=== PATIENT | male | born 1995 | race African-American/Black ===

== ENCOUNTER 2016-03-22 00:25 | Inpatient (IN) | payer BC ==
[~2016-03-22] VITALS: Ht 175.3 cm; Wt 88.3 kg
[2016-03-22] MEDS ORDERED: HALOPERIDOL LACTATE 5 MG/ML 1 ML VIAL IM STA (00:41)
[2016-03-22 00:52] LABS: BASO % 0.1 %; BASO ABS # 0.01 K/uL (0-0.2); COMPLETE YES; HEMATOCRIT 39.7 % (42-52); IG% 0.3 %; LYMPH % 6.9 %; LYMPH ABS # 1.06 K/uL (1.2-3.4); MEAN CELL VOLUME 88.6 fL (80-100); MEAN CORPUSCULAR HEMOGLOBIN 31.9 pg (25-34); MEAN PLATELET VOLUME 9.4 fL (7.4-10.4); MONO % 4.8 %; NEUT % 87.9 %; PLATELET COUNT 212 K/uL (130-400); RED BLOOD COUNT 4.48 M/uL (4.7-6.1); WHITE BLOOD COUNT 15.33 K/uL (4.8-10.8)
[2016-03-22 01:06] LABS: POTASSIUM 4.1 mmol/L (3.5-5.1)
--- NOTE | 2016-03-22 01:07 | EMERGENCY ROOM VISIT NOTE ---
History Report prepared by Jaylyn: Shalini Whiteside Under the Supervision of: Dr. Real Almaguer M.D. First contact with patient: 00:31 Chief Complaint: MENTAL HEALTH EVALUATION Stated Complaint: MENTAL HEALTH History of Present Illness The patient is a 20 year old male who presents to the Emergency Room via Police with complaints of persistent suicidal ideation occurring today. As per police, the patient had threatened to slit his throat. He then locked himself in the bathroom for about 2 and a half hours. As per police, the parents told the police that the patient does not have a history of any mental health disorders. He does not have any medical problems. He does not follow with a counselor. The patient states that earlier today he told some of his friends that he was thinking about committing suicide. He denies any major incidents that triggered his symptoms. He drank some alcohol earlier in the day. He also reports smoking marijuana. He is unsure if it was laced with something else or not. The patient denies injuring himself today. He denies overdosing on any medication. He currently denies any pain. The patient states that he currently feels "out of place." The patient denies any chest pain, abdominal pain, or any other complaints. As per friends, the patient had been altered all day today. HPI is limited secondary to altered mental status. Source of History: patient, police, friend History Limited By: AMS Onset: today Position: other (global) Symptom Intensity: No pain Quality: other (suicidal ideation) Timing: other (persistent) Associated Symptoms: No abdominal pain, No chest pain Review of Systems ROS is limited secondary to altered mental status. Past Medical & Surgical Medical Problems: (1) No Known Active Medical Problems Family History Patient reports no known family medical history. Social History Alcohol Use: occasionally Drug Use: marijuana Marital Status: single Housing Status: lives alone Occupation Status: [employer] student Current/Historical Medications No Active Prescriptions or Reported Meds Allergies Coded Allergies: No Known Allergies (Unverified , 03/22/16) Physical Exam Vital Signs Date Time Temp Pulse Resp B/P Pulse Ox O2 Delivery O2 Flow Rate FiO2 03/22/16 04:45 81 16 144/77 100 Room Air 03/22/16 02:45 87 18 129/87 99 Room Air 03/22/16 00:48 37.2 105 16 136/79 98 Room Air Physical Exam GENERAL: Patient is altered, mildly agitated, easily excitable. HEENT: No acute trauma, normocephalic atraumatic, mucous membranes moist, no nasal congestion, no scleral icterus. NECK: No stridor, no adenopathy, no meningismus, trachea is midline. LUNGS: No dyspnea. Clear to auscultation and equal bilaterally. No wheeze, no rhonchi. HEART: Regular rate and rhythm. No murmurs, rubs, gallops appreciated. ABDOMEN: Soft, nontender, bowel sounds positive, no masses appreciated, no peritonitis. BACK: No midline tenderness, no CVA tenderness EXTREMITIES: Normal motion all extremities, no cyanosis, no edema. NEUROLOGIC: Alert and oriented, no acute motor or sensory deficits, no focal weakness, cranial nerves grossly intact. PSYCHIATRIC: Admits suicidal ideation, denies depression, admits drug and alcohol use. SKIN: No rash, no jaundice, no diaphoresis. Medical Decision & Procedures Laboratory Results 03/22/16 00:38 Red Blood Count 4.48, Mean Corpuscular Volume 88.6, Mean Corpuscular Hemoglobin 31.9, Mean Corpuscular Hemoglobin Concent 36.0, Mean Platelet Volume 9.4, Neutrophils (%) (Auto) 87.9, Lymphocytes (%) (Auto) 6.9, Monocytes (%) (Auto) 4.8, Eosinophils (%) (Auto) 0.0, Basophils (%) (Auto) 0.1, Neutrophils # (Auto) 13.48, Lymphocytes # (Auto) 1.06, Monocytes # (Auto) 0.74, Eosinophils # (Auto) 0.00, Basophils # (Auto) 0.01 03/22/16 00:38 Test 03/22/16 00:38 03/22/16 01:46 White Blood Count 15.33 K/uL (4.8-10.8) Red Blood Count 4.48 M/uL (4.7-6.1) Hemoglobin 14.3 g/dL (14.0-18.0) Hematocrit 39.7 % (42-52) Mean Corpuscular Volume 88.6 fL (80-100) Mean Corpuscular Hemoglobin 31.9 pg (25-34) Mean Corpuscular Hemoglobin Concent 36.0 g/dl (32-36) Platelet Count 212 K/uL (130-400) Mean Platelet Volume 9.4 fL (7.4-10.4) Neutrophils (%) (Auto) 87.9 % Lymphocytes (%) (Auto) 6.9 % Monocytes (%) (Auto) 4.8 % Eosinophils (%) (Auto) 0.0 % Basophils (%) (Auto) 0.1 % Neutrophils # (Auto) 13.48 K/uL (1.4-6.5) Lymphocytes # (Auto) 1.06 K/uL (1.2-3.4) Monocytes # (Auto) 0.74 K/uL (0.11-0.59) Eosinophils # (Auto) 0.00 K/uL (0-0.5) Basophils # (Auto) 0.01 K/uL (0-0.2) RDW Standard Deviation 38.8 fL (36.4-46.3) RDW Coefficient of Variation 12.0 % (11.5-14.5) Immature Granulocyte % (Auto) 0.3 % Immature Granulocyte # (Auto) 0.04 K/uL (0.00-0.02) Anion Gap 12.0 mmol/L (3-11) Est Creatinine Clear Calc Drug Dose 99.5 ml/min Estimated GFR () 91.0 Estimated GFR (Non- 78.5 BUN/Creatinine Ratio 14.3 (10-20) Calcium Level 9.5 mg/dl (8.5-10.1) Total Bilirubin 0.6 mg/dl (0.2-1) Aspartate Amino Transf (AST/SGOT) 31 U/L (15-37) Alanine Aminotransferase (ALT/SGPT) 71 U/L (12-78) Alkaline Phosphatase 62 U/L (45-117) Total Creatine Kinase 949 U/L (39-308) Total Protein 8.4 gm/dl (6.4-8.2) Albumin 4.7 gm/dl (3.4-5.0) Globulin 3.7 gm/dl (2.5-4.0) Albumin/Globulin Ratio 1.3 (0.9-2) Thyroid Stimulating Hormone (TSH) 1.050 uIu/ml (0.300-4.500) Salicylates Level < 1.7 mg/dl (2.8-20) Acetaminophen Level < 2 ug/ml (10-30) Ethyl Alcohol mg/dL < 3.0 mg/dl (0-3) Urine Color YELLOW Urine Appearance CLEAR (CLEAR) Urine pH 5.0 (4.5-7.5) Urine Specific [place] 1.038 (1.000-1.030) Urine Protein NEG (NEG) Urine Glucose (UA) 3+ (NEG) Urine Ketones TRACE (NEG) Urine Occult Blood NEG (NEG) Urine Nitrite NEG (NEG) Urine Bilirubin NEG (NEG) Urine Urobilinogen NEG (NEG) Urine Leukocyte Esterase SMALL (NEG) Urine WBC (Auto) >30 /hpf (0-5) Urine RBC (Auto) 5-10 /hpf (0-4) Urine Hyaline Casts (Auto) 10-30 /lpf (0-5) Urine Epithelial Cells (Auto) 10-20 /lpf (0-5) Urine Bacteria (Auto) NEG (NEG) Urine Opiates Screen NEG (NEG) Urine Methadone, Qualitative NEG (NEG) Urine Barbiturates NEG (NEG) Urine Phencyclidine (PCP) Level NEG (NEG) Ur Amphetamine/Methamphetamine NEG (NEG) MDMA (Ecstasy) Screen NEG (NEG) Urine Benzodiazepines Screen NEG (NEG) Urine Cocaine Metabolite NEG (NEG) Urine Marijuana (THC) POS (NEG) Laboratory results as reviewed by me. Medications Administered Medications (Trade) Dose Ordered Sig/Lisy Route Start Time Stop Time Status Last Admin Dose Admin Sodium Chloride (Nss 1000ml) 1,000 ml @ 999 mls/hr Q1H1M STAT IV 03/22/16 01:25 03/22/16 02:25 DC 03/22/16 01:25 999 MLS/HR ECG Indication: altered mental status Rate (beats per minute): 110 Rhythm: sinus tachycardia Findings: no acute ischemic change, no ectopy, other (QTC of 422) ED Course 0031: The patient was evaluated in room A05. A complete history and physical exam was performed. 0116: I reevaluated the patient who is calm. He did not receive the Haldol. 0125: Sodium Chloride 1000 ml @ 999 mls/hr IV. He is agreeable to an IV. 0237: The patient is sleeping. I discussed the plan with his friends. 0300: I discussed the patient's case with his parents. The patient is sleeping soundly and in no distress. 0524: He woke up and went to the bathroom. The patient is now sleeping again. 0730: The patient was signed out to Dr. Serrato at [id number]. Medical Decision Differential: Mood Disorder, Overdose, Infectious, Electrolyte Abnormality, Cardiac, Hepatic, Endocrine, Toxicologic, Neurologic, amongst other pathologies entertained. 20 yr old male arrives altered and agitated. He is apparently much calmer now than when he had essentially been in standoff with police threatening to cut throat for over an hour. EMS gave 4 mg Ativan en route. With friends at side he eventually calmed considerably to point where he feel asleep and in no further distress. Never required haldol that had been initially ordered. EKG looks good. Mild CK elevation likely from agitation which is also likely source of WBC elevation as no fevers, no headache, no neck stiffness nor other evidence of infection. Given 1 L NSS fluids for rehydration. Patient still quite somnolent as would be expected after large dosing of ativan. He was monitored and parents eventually arrived. Explained at length to them process, and in this case the plan to monitor Pro for next few hours and in to the morning until he is awake and fully interactive. I suspect this may have much to do with the Marijuana he smoked prior to this event taking place, be it that it set off acute psychotic break vs it was laced with some secondary drug (PCP, bath salts, etc). 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 Around 7am I re-evaluated patient and he is awake, alert and oriented. He is aware of what happened and admits to suicidal thoughts over the last 24 hours. He is no longer acutely psychotic and I feel is capable of mental health evaluation. I made it clear to patient my thoughts that inpatient stay would be beneficial and that [facility] will further discuss this with him. Impression Primary Impression: Acute psychosis Additional Impression: Suicidal behavior Scribe Attestation The scribe's documentation has been prepared under my direction and personally reviewed by me in its entirety. I confirm that the note above accurately reflects all work, treatment, procedures, and medical decision making performed by me. Departure Information Dispostion Still a Patient Prescriptions No Active Prescriptions or Reported Meds Patient Instructions A Signature Page, My [facility] Health Problem Qualifiers Additional Impression: Suicidal behavior Attempted self-injury: with attempted self-injury Qualified Codes: T14.91 - Suicide attempt
[2016-03-22 01:11] LABS: BUN/CREATININE RATIO 14.3 (10-20); CALCIUM 9.5 mg/dl (8.5-10.1); CREATININE 1.3 mg/dl (0.60-1.40)
[2016-03-22 01:22] LABS: ALB/GLOB RATIO 1.3 (0.9-2); THYROID STIMULATING HORMONE 1.05 uIu/ml (0.300-4.500)
[2016-03-22 01:25] LABS: ACETAMINOPHEN < 2 ug/ml (10-30)
[2016-03-22] MEDS ORDERED: SODIUM CHLORIDE 0.9% 1000ML 1,000 ML IV STA ×2 (01:25→20:36)
[2016-03-22 01:58] LABS: URINE APPEARANCE CLEAR (CLEAR); URINE BILIRUBIN NEG (NEG); URINE COLOR YELLOW; URINE NITRITE NEG (NEG); URINE SPECIFIC GRAVITY 1.038 (1.000-1.030); UROBILINOGEN NEG (NEG); ZZUR CULT IF INDIC CLEAN CATCH YES
[2016-03-22 02:00] LABS: MANUAL MICROSCOPIC REQUIRED? NO; REVIEW REQ? NO
[2016-03-22 02:29] LABS: BENZODIAZEPINE, URINE NEG (NEG); COCAINE,URINE NEG (NEG); PHENCYCLIDINE, URINE NEG (NEG)
--- NOTE | 2016-03-22 07:44 | EMERGENCY ROOM VISIT NOTE ---
ED Visit Note First contact with patient: 07:17 20-year-old male was signed off to me at change of shift from Dr. Almaguer. Patient is awaiting mental health evaluation. I briefly discussed care with the patient and with multiple family members. 1510 lymphs patient was accepted for transfer to [place] but they wanted another CK first. That second CK was significantly elevated. The patient will be further hydrated and another CK will be drawn at 20:00. Hopefully his CK will then be down and the patient can proceed to [place]. The case was signed off to Dr. Patel at 1610 for reevaluation this evening. IMPRESSION: Depression Suicidal Ideation Rhabdomyolysis Acute psychosis
[2016-03-22 14:54] LABS: CKMB/CK RATIO 0.3 (0-3.0)
[2016-03-22] MEDS ORDERED: SODIUM CHLORIDE 0.9% 1000ML 2,000 ML IV ONE (15:15)
--- NOTE | 2016-03-22 16:12 | EMERGENCY ROOM VISIT NOTE ---
ED Visit Note First contact with patient: 16:10 Patient was taken in signout from Dr. Serrato at the change of shift. He was pending a repeat total CK. The patient had received hydration, 2 L and was orally hydrated. His repeat CK revealed an increasing value. The patient was reassessed and was feeling well. No major muscle pains. Due to the fact that his total CK was going out he was given normal saline at 250 mL an hour IV. An consultation was made with internal medicine for further management in the hospital. I did discuss case with Dr. Agapito Sosa who will see the patient for further treatment.
[2016-03-22 22:06] LABS: BUN/CREATININE RATIO 11.1 (10-20); CALCIUM 9.5 mg/dl (8.5-10.1); CREATININE 0.93 mg/dl (0.60-1.40); POTASSIUM 3.9 mmol/L (3.5-5.1)
[2016-03-22] MEDS ORDERED: ZOLPIDEM TARTRATE 5 MG TAB PO PRN (23:00)
[2016-03-22] MEDS ORDERED: ACETAMINOPHEN 325 MG TAB PO PRN (23:00)
[2016-03-22] MEDS ORDERED: ONDANSETRON INJ 2 MG/ML 2 ML VIAL IV PRN (23:00)
[2016-03-22] MEDS ORDERED: IV FLUIDS COMPLETED PRN (23:15)
[2016-03-23] MEDS: NSS + 20MEQ KCL 1000ML 1,000 ML IV SCH ×6 (00:42→20:10)
[2016-03-23 00:44] VITALS: BP 143/89; PULSE 73; TEMP 36.7; O2SAT 99; Ht 175.3 cm; Wt 88.3 kg
--- NOTE | 2016-03-23 01:57 | History and Physical ---
History & Physical Date & Time of Service: Mar 23, 2016 at 01:41 Chief Complaint: Elevated Creatine Kinase Level, Suicidal Behavior Primary Care Physician: [facility] History of Present Illness Source: patient, parent The patient is a 20-year-old male who presents emergency department via police due to persistent suicidal ideation that occurred earlier in the day prior to arrival. The police report that he had threatened the slit his throat and then locked himself in the bathroom for about 2-1/2 hours. The parents report that the patient does not have any known medical problems, mental health disorders and does not follow with a counselor. The patient reports that he did tell some friends earlier today he was thinking about quitting suicide, but denies any trigger for these symptoms. He did drink some alcohol and smokes some marijuana earlier in the day. At this time the patient primarily reports that he feels "out of place", but he has not attempted to hurt himself. Family History Patient reports no known family medical history. Social History Smoking Status: Never Smoker Smokeless Tobacco Use: No Alcohol Use: none Drug Use: marijuana Marital Status: single Occupational Status: [employer] student Multi-Drug Resistant Organisms History of MDRO: No Allergies Coded Allergies: No Known Allergies (Unverified , 03/22/16) Home Medications No Active Prescriptions or Reported Meds Review of Systems The patient denies chest pain, palpitations, shortness of breath, cough, lower extremity swelling, vision change, hearing change, sore throat, fevers, chills, sweats, weight change, fatigue, nausea, vomiting, abdominal pain, pelvic pain, blood in urine or stool, dysuria, urinary frequency or urgency, lightheadedness , dizziness, headache, memory loss, rash, abnormal bruising or bleeding, imbalance, focal or generalized weakness, numbness or tingling in arms or legs, arthralgias or myalgias, back or neck pain, night sweats, or allergy symptoms. The review of systems is otherwise negative other than for that already noted above, and at least 10 systems have been reviewed. Physical Exam Vital Signs Date Time Temp Pulse Resp B/P Pulse Ox O2 Delivery O2 Flow Rate FiO2 03/23/16 00:44 36.7 73 18 143/89 99 Room Air 03/23/16 00:01 37.2 81 18 153/104 97 03/22/16 23:47 81 18 153/104 97 Room Air 03/22/16 21:21 87 18 145/103 98 Room Air 03/22/16 18:30 68 16 160/89 98 Room Air 03/22/16 15:00 87 20 160/89 98 Room Air 03/22/16 12:02 84 20 154/84 98 Room Air 03/22/16 09:03 74 16 154/71 99 Room Air 03/22/16 04:45 81 16 144/77 100 Room Air 03/22/16 02:45 87 18 129/87 99 Room Air The patient is awake, well-developed and adequately nourished, alert and oriented 3, normocephalic and atraumatic, lying in bed and in no acute distress. HEENT--PERRL, EOMI, mucous membranes moist, and oropharynx normal. Neck--supple, no JVD or bruits, thyroid normal, trachea midline, no adenopathy. Heart--normal S1 and S2, no extra beats, no murmurs, rubs or gallops. Lungs--clear bilaterally with good air movement, no respiratory distress, no accessory muscle use. Abdomen--normal bowel sounds and soft, nontender and nondistended, no hernias or masses, no organomegaly. Extremities--no cyanosis, clubbing or edema. There are good distal pulses b/l. Dermatologic--normal skin turgor, normal color, warm and dry, no abnormal lymph nodes, no rash. Neurologic--cranial nerves II through XII grossly intact, motor and sensory exam is normal. Rheumatologic--normal range of motion, nontender, muscles and joints. Psychiatric--normal affect. Diagnostics Laboratory Results Results Past 24 Hours Test 03/22/16 01:46 03/22/16 14:00 03/22/16 19:45 03/22/16 21:17 Range/Units Urine Color YELLOW Urine Appearance CLEAR CLEAR Urine pH 5.0 4.5-7.5 Urine Specific [place] 1.038 1.000-1.030 Urine Protein NEG NEG Urine Glucose (UA) 3+ NEG Urine Ketones TRACE NEG Urine Occult Blood NEG NEG Urine Nitrite NEG NEG Urine Bilirubin NEG NEG Urine Urobilinogen NEG NEG Urine Leukocyte Esterase SMALL NEG Urine WBC (Auto) >30 0-5 /hpf Urine RBC (Auto) 5-10 0-4 /hpf Urine Hyaline Casts (Auto) 10-30 0-5 /lpf Urine Epithelial Cells (Auto) 10-20 0-5 /lpf Urine Bacteria (Auto) NEG NEG Urine Opiates Screen NEG NEG Urine Methadone, Qualitative NEG NEG Urine Barbiturates NEG NEG Urine Phencyclidine (PCP) Level NEG NEG Ur Amphetamine/Methamphetamine NEG NEG MDMA (Ecstasy) Screen NEG NEG Urine Benzodiazepines Screen NEG NEG Urine Cocaine Metabolite NEG NEG Urine Marijuana (THC) POS NEG Total Creatine Kinase 4069 5067 4995 39-308 U/L Creatine Kinase MB 10.4 0.5-3.6 ng/ml Creatine Kinase MB Ratio 0.3 0-3.0 Erythrocyte Sedimentation Rate 4 0-14 mm/hr Sodium Level 140 136-145 mmol/L Potassium Level 3.9 3.5-5.1 mmol/L Chloride Level 104 98-107 mmol/L Carbon Dioxide Level 25 21-32 mmol/L Anion Gap 11.0 3-11 mmol/L Blood Urea Nitrogen 10 7-18 mg/dl Creatinine 0.93 0.60-1.40 mg/dl Est Creatinine Clear Calc Drug Dose 139.1 ml/min Estimated GFR () 136.5 Estimated GFR (Non- 117.8 BUN/Creatinine Ratio 11.1 10-20 Random Glucose 100 70-99 mg/dl Calcium Level 9.5 8.5-10.1 mg/dl Microbiology Results 03/22/16 Urine Culture, Received Pending Impression Assessment and Plan Suicidal ideation--the patient will be admitted to the medical service to assess for any possible medical problems, and will be seen by psychiatry in consult. The patient had been approved / excepted to go to [facility], however, he had elevated creatine kinase during screening laboratories, and when repeat labs were done at [facility] request, the CK had increased from 900' s to 4000's, and they no longer agreed to accept the patient. He was then referred to the medical service for admission. Elevated creatine kinase--unknown cause at this time, but may have just been due to relative immobility during the day as he was in the emergency department for over 21 hours before medical consult was made. His creatinine on follow-up laboratories hadn't improved from 1.30 to 0.93, suggesting that there was no element of renal disease. His CK levels went from 949 to 4069 to 5067 to 4995. We'll follow serial CK levels, and BMP levels, and when medically stable will be transferred to the psychiatry service. The patient himself continues to have no medical symptoms at this time or earlier in the day. Level of Care Med/Surg Advanced Directives Existing Advance Directive: No Existing Living Will: No Existing Power of Binding Machine Operator: No Resuscitation Status FULL RESUSCITATION VTE Prophylaxis VTE Risk Assessment Done? Y/N: Yes Risk Level: Low Given or contraindicated: Treatment not indicated
[2016-03-23 06:17] LABS: BASO % 0.1 %; BASO ABS # 0.01 K/uL (0-0.2); COMPLETE YES; HEMATOCRIT 40.3 % (42-52); IG% 0.1 %; LYMPH % 40.3 %; LYMPH ABS # 2.72 K/uL (1.2-3.4); MEAN CELL VOLUME 90.2 fL (80-100); MEAN CORPUSCULAR HEMOGLOBIN 31.3 pg (25-34); MEAN CORPUSCULAR HGB CONC 34.7 g/dl (32-36); MEAN PLATELET VOLUME 9.3 fL (7.4-10.4); MONO % 10.8 %; NEUT % 47.7 %; PLATELET COUNT 175 K/uL (130-400); RED BLOOD COUNT 4.47 M/uL (4.7-6.1); WHITE BLOOD COUNT 6.75 K/uL (4.8-10.8)
[2016-03-23 06:31] LABS: INR 1.2 (0.9-1.1); PARTIAL THROMBOPLASTIN RATIO 1.1; PROTHROMBIN TIME (PATIENT) 12.8 SECONDS (9.0-12.0)
[2016-03-23 06:44] LABS: BUN/CREATININE RATIO 10.6 (10-20); CREATININE 0.8 mg/dl (0.60-1.40); MAGNESIUM 2.1 mg/dl (1.8-2.4)
[2016-03-23 07:38] VITALS: BP 147/91; PULSE 58; TEMP 36.7; O2SAT 100
[2016-03-23] MEDS ORDERED: INFLUENZA VIRUS QUAD VACCINE 0.5 ML SYR IM. ONE (08:00)
[2016-03-23] MEDS ORDERED: INFLUENZA ADMINISTRATION CHARGE ONE (08:00)
--- NOTE | 2016-03-23 14:27 | CONSULTATION REPORT ---
DATE OF CONSULTATION: 03/23/2016 DATE OF CONSULTATION: 03/23/2016. IDENTIFYING DATA: Pro Cortez is a 20-year-old -[place]er male from the [place] area, who is a student at [employer]. He was brought to the Emergency Room by police due to statements of suicidality, barricading himself in a bathroom and not feeling safe. Information is gathered from the patient and the electronic medical record, and considered to be reliable. CHIEF COMPLAINT: "It was a really weird day. I had a mental breakdown." HISTORY OF PRESENT ILLNESS: Pro Cortez is a 20-year-old [employer] student with no previous psychiatric history, who said he had been hanging out with friends yesterday when he began to feel unsafe with them, began having suicidal ideation. He admits that he told them he felt like cutting his throat and asked them to call the suicide hotline, which he did. Apparently after talking with people on the hotline he barricaded himself in the bathroom because he felt "threatened". He cannot further elaborate on this but said he felt threatened by his friends. There is a 302 petitioner statement from the top stop attacher, Werner Read, who went to the apartment. In that statement he reports that he made a comment to his peers that he intended to commit suicide by slitting his throat. He appeared to be hallucinating. It was believed that the patient was in possession of a kitchen knife. The petitioner responded to the scene where the patient had barricaded himself in the bathroom. The patient commented that he was scared and sad. He indicated he wanted to and intended to commit suicide. He did not in the end have any weapons. He denied he intended to commit suicide. At the time I see the patient, he is alert and cooperative. He is sitting in his bed and frequently looks outside the window or to the hallway. He says his mood has been "pretty happy." He admits that he smokes marijuana with his friends and had some alcohol earlier in the day. He denies that he has ever previously experienced a fearful episode or anything similar to this. He did say that he feels "helpless" and says he feels so in general without any more specificity. He says his appetite has been good, sleep has been good as well. He admits that he was fearful at that time and fearing somebody was trying to kill him. He denies these feelings today and says that if he were with these friends he would feel safe. CURRENT MEDICATIONS: None. PAST PSYCHIATRIC HISTORY: The patient denies ever having seen a mental health professional, ever having been hospitalized for ever having made a suicide attempt. ACCESS TO GUNS: Denies. PAST MEDICAL HISTORY: 1. Denies for personal history of obesity, diabetes, dyslipidemia, hypertension, or cardiovascular disease. 2. Tobacco use -- nonsmoker. FAMILY HISTORY: Denies for psychiatric issues or suicide. He says that his parents enjoy drinking, but does not see them as alcoholics. SUBSTANCE USE HISTORY: In the last year, the patient says that he drinks generally on weekends. He did have an underage drinking charge last year and went through the [facility] program. He also admits to smoking marijuana, regularly on breaks and less regularly when in school. He does admit to smoking marijuana yesterday. PERSONAL HISTORY: The patient grew up outside of [place]. He was raised by his mother and father. He has 3 siblings. 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 He also works in [employer]. He is not currently in a relationship, has never been and has no children. He lives in an apartment with 3 new roommates. He denies legal issues currently. He denies any psychological trauma history. MENTAL STATUS EXAMINATION: A 20-year-old -[place] male who is alert and cooperative. He makes good eye contact, although will frequently look out the window or in the hallway as if possibly paranoid. Motor behavior is significant for restless repositioning. Speech is of normal rate, volume, and tone. Affect is flat to anxious. Mood appears to be anxious. Thought process is organized and goal directed but limited and could be interpreted as guarded. He denies auditory or visual hallucinations. He admits to suicidal thoughts, making a statement that he wanted to slit his throat, but denies intent. He denies homicidal ideation. Today, the patient is fully oriented. Fund of knowledge appears to be intact. Intelligence is estimated to be average. Insight and judgment are limited. VITAL SIGNS: Temp 36.7, pulse 58, respirations 16, blood pressure 147/91. LABORATORIES: 1. CBC with diff -- notable only for low RBCs 4.47, hematocrit 40.3. 2. Chem profile -- within normal limits with the exception of AST elevated at 82, CKs that were elevated as high as 5,067, now trending down to 3,454. 3. TSH -- within normal limits. 4. Toxicology -- positive for marijuana only. 5. Urinalysis -- positive for trace ketones, small amount of leukocyte esterase, greater than 30 WBCs, 5-10 RBCs, 10-30 hyaline casts and 10-20 epithelials. 6. Chem profile. 7. Coag studies -- PT 12.8, INR 1.2. REVIEW OF SYSTEMS: The patient's only complaints are psychiatric. He denies physical complaints. PHYSICAL EXAMINATION: As per Dr. Sosa. IMPRESSION: A 20-year-old [employer] student brought to the Emergency Room by police after making suicidal statements and feeling paranoid someone was going to kill him. He did consume marijuana yesterday as well as alcohol. He denies any previous episodes that are similar and parents confirmed while he was in the ER that he has no history of psychiatric illnesses. Differential includes a psychotic disorder NOS and substance induced paranoia. Today, the patient appears to be improved however is still somewhat guarded and odd in interview. His parents are coming from [place] and will arrive shortly. I am asking the liaison nurse to return to talk with the parents to find out what baseline looks like. At this point I will not make recommendations about treatment pending parents input. If he remains guarded and we have questions he should be hospitalized for further evaluation. DIAGNOSES: Preliminary diagnosis of psychosis NOS, differential includes substance induced psychosis. PLAN: Has been reviewed with Dr. Kenia Gómez. 1. Suicidality and psychosis -- Obtain supplemental from family. There is a 302 petitioners statement on the chart from the top stop attacher. Will await their input before decision about hospitalization. 2. We will follow. We thank you for allowing us to participate in this man's care.
--- NOTE | 2016-03-23 14:54 | Psychiatric Progress Notes ---
Psychiatric Progress Note Date of Service Mar 23, 2016. Notes Met with patient's family including both parents, brother and sister. Family confirms that there is no history of mental illness, and acknowledge that he has been under academic stress, taking a large number of credits and working. They do not see anything today that is unusual or alarming, but want him to abide by recommendations. His parents are willing to increase their financial support so that he doesn't have to work at all, and are encouraging him to reduce his credit load which he is willing to do. He is denying SI at this time. I would like to see him again tomorrow AM to decide about recommendations for inpatient care. At minimum he will require OP follow up. I have explained this to patient and parents and all are in agreement.
--- NOTE | 2016-03-23 15:00 | Progress Note ---
Subjective Subjective Date of Service: Mar 23, 2016. Pt evaluation today including: conversation w/ patient, physical exam, chart review, review of studies, review of inpatient medication list Notes: denies suicidal ideation now, denies complains, just woke up this am at 9 am Problem List Medical Problems: (1) Acute psychosis Status: Acute (2) Suicidal behavior Status: Acute Review of Systems Constitutional: No fever Eyes: No worsening of vision ENT: No hearing loss Cardiac: No chest pain Abdomen: No pain Male : No dysuria Neurologic: No memory loss Psychiatric: No depression symptoms Heme: No abnormal bleeding/bruising Endo: No fatigue Physical Exam Vital Signs Vital Signs Past 24 Hours: Date Time Temp Pulse Resp B/P Pulse Ox O2 Delivery O2 Flow Rate FiO2 03/23/16 09:00 Room Air 03/23/16 07:38 36.7 58 16 147/91 100 Room Air 03/23/16 00:44 36.7 73 18 143/89 99 Room Air 03/23/16 00:01 37.2 81 18 153/104 97 03/22/16 23:47 81 18 153/104 97 Room Air 03/22/16 21:21 87 18 145/103 98 Room Air 03/22/16 18:30 68 16 160/89 98 Room Air 03/22/16 15:00 87 20 160/89 98 Room Air Physical Exam: General Appearance: WD/WN, no apparent distress Eyes: bilateral eyes normal inspection ENT: hearing grossly normal, pharynx normal Neck: supple, no JVD Respiratory/Chest: chest non-tender, normal breath sounds Cardiovascular: no edema, no gallop Abdomen: normal bowel sounds, soft Extremities: normal range of motion, normal inspection Neurologic/Psychiatric: alert, oriented x 3 Skin: normal color, warm/dry Medications Medications: Current Inpatient Medications Medications (Trade) Dose Ordered Sig/Lisy Route Start Time Stop Time Status Last Admin Dose Admin Miscellaneous (Iv Fluids Completed) 1 ea PRN PRN N/A 03/22/16 23:15 03/22/17 23:14 Acetaminophen (Tylenol Tab) 650 mg Q4H PRN PO 03/22/16 23:00 04/21/16 22:59 Zolpidem Tartrate (Ambien Tab) 5 mg HSZ PRN PO 03/22/16 23:00 04/21/16 22:59 Ondansetron HCl 4 mg 4 mg Q6H PRN IV 03/22/16 23:00 04/21/16 22:59 Potassium Chloride/Sodium Chloride (Nss + 20meq KCl 1000ml) 1,000 ml @ 250 mls/hr Q4H IV 03/23/16 00:30 04/22/16 00:29 03/23/16 12:30 250 MLS/HR Laboratory Data Labs: Last 24 Hours Test 03/22/16 19:45 03/22/16 21:17 03/23/16 05:50 Total Creatine Kinase 5067 U/L 4995 U/L 3454 U/L Erythrocyte Sedimentation Rate 4 mm/hr Sodium Level 140 mmol/L 142 mmol/L Potassium Level 3.9 mmol/L 4.0 mmol/L Chloride Level 104 mmol/L 107 mmol/L Carbon Dioxide Level 25 mmol/L 25 mmol/L Anion Gap 11.0 mmol/L 10.0 mmol/L Blood Urea Nitrogen 10 mg/dl 9 mg/dl Creatinine 0.93 mg/dl 0.80 mg/dl Est Creatinine Clear Calc Drug Dose 139.1 ml/min 162.0 ml/min Estimated GFR () 136.5 149.0 Estimated GFR (Non- 117.8 128.6 BUN/Creatinine Ratio 11.1 10.6 Random Glucose 100 mg/dl 89 mg/dl Calcium Level 9.5 mg/dl 9.0 mg/dl White Blood Count 6.75 K/uL Red Blood Count 4.47 M/uL Hemoglobin 14.0 g/dL Hematocrit 40.3 % Mean Corpuscular Volume 90.2 fL Mean Corpuscular Hemoglobin 31.3 pg Mean Corpuscular Hemoglobin Concent 34.7 g/dl Platelet Count 175 K/uL Mean Platelet Volume 9.3 fL Neutrophils (%) (Auto) 47.7 % Lymphocytes (%) (Auto) 40.3 % Monocytes (%) (Auto) 10.8 % Eosinophils (%) (Auto) 1.0 % Basophils (%) (Auto) 0.1 % Neutrophils # (Auto) 3.21 K/uL Lymphocytes # (Auto) 2.72 K/uL Monocytes # (Auto) 0.73 K/uL Eosinophils # (Auto) 0.07 K/uL Basophils # (Auto) 0.01 K/uL RDW Standard Deviation 40.5 fL RDW Coefficient of Variation 12.2 % Immature Granulocyte % (Auto) 0.1 % Immature Granulocyte # (Auto) 0.01 K/uL Prothrombin Time 12.8 SECONDS Prothromb Time International Ratio 1.2 Activated Partial Thromboplast Time 27.5 SECONDS Partial Thromboplastin Ratio 1.1 Magnesium Level 2.1 mg/dl Total Bilirubin 0.8 mg/dl Direct Bilirubin 0.2 mg/dl Aspartate Amino Transf (AST/SGOT) 82 U/L Alanine Aminotransferase (ALT/SGPT) 62 U/L Alkaline Phosphatase 52 U/L Total Protein 7.0 gm/dl Albumin 3.8 gm/dl Assessment and Plan A 20 yo male comes with 1. Suicidal ideation appreciated psychiatry consult. patient may require inpatient psychiatric admission based on suicidal ideation continue 1:1 The patient had been approved / excepted to go to [facility], however, he had elevated creatine kinase during screening laboratories, and when repeat labs were done at [facility]'s request, the CK had increased from 900's to 4000's , and they no longer agreed to accept the patient. He was then referred to the medical service for admission. 2. Elevated creatine kinase, unknown cause at this time, but may have just been due to relative immobility during the day possible mild rhabdomyolysis, with no renal involvement His CPK continue to improve with IVF and will recheck his CPK tomorrow am and if continues to improve, then hopefully patient is going to be medically stable for a transfer to the psychiatry service tomorrow. The patient himself continues to have no medical symptoms at this time or earlier in the day.
[2016-03-23 23:27] VITALS: BP 160/96; PULSE 86; TEMP 36.5; O2SAT 99
[2016-03-24] MEDS ORDERED: LORAZEPAM 2 MG/ML 1 ML VIAL ONE (00:17)
[2016-03-24] MEDS ORDERED: HALOPERIDOL LACTATE 5 MG/ML 1 ML VIAL ONE (00:17)
[2016-03-24] MEDS ORDERED: NURSING VERBAL MED ORDER ONE (00:30)
--- NOTE | 2016-03-24 00:38 | Progress Note ---
Progress Note DOC NOTE: The patient is being placed in locked restraints due to violent behavior at 12: 30 AM. The patient ran out of the hospital, and was ultimately tracked down and hand- cuffed by police. He was then brought back to the hospital, and place in a bed with 4 point leather restraints due to concerns regarding hurting himself, and also swung at a police justice. He is also being given Haldol 5mg IM and Lorazepam 2mg IV now.
[2016-03-24] MEDS: NSS + 20MEQ KCL 1000ML 1,000 ML IV SCH ×3 (00:45→08:35)
[2016-03-24 06:39] LABS: BASO % 0.1 %; BASO ABS # 0.01 K/uL (0-0.2); COMPLETE YES; EOS % 0.2 %; HEMATOCRIT 37.8 % (42-52); IG% 0.3 %; LYMPH % 25.3 %; LYMPH ABS # 2.87 K/uL (1.2-3.4); MEAN CELL VOLUME 87.5 fL (80-100); MEAN CORPUSCULAR HEMOGLOBIN 31.5 pg (25-34); MEAN PLATELET VOLUME 8.8 fL (7.4-10.4); MONO % 9.4 %; NEUT % 64.7 %; PLATELET COUNT 170 K/uL (130-400); RED BLOOD COUNT 4.32 M/uL (4.7-6.1); WHITE BLOOD COUNT 11.35 K/uL (4.8-10.8)
[2016-03-24 06:49] LABS: INR 1.2 (0.9-1.1); PROTHROMBIN TIME (PATIENT) 12.7 SECONDS (9.0-12.0)
[2016-03-24 07:27] LABS: BUN/CREATININE RATIO 9.1 (10-20); CREATININE 0.96 mg/dl (0.60-1.40); MAGNESIUM 2.3 mg/dl (1.8-2.4)
--- NOTE | 2016-03-24 08:09 | Progress Note ---
Subjective Subjective Date of Service: Mar 24, 2016. Pt evaluation today including: conversation w/ patient, conversation w/ family (father), physical exam, chart review, review of studies, review of inpatient medication list Notes: events overnight noticed, patient was trying to leave hospital, police was involved, he was put in restrains, now calm with father next to him, off restrains, denies suicidal ideation Problem List Medical Problems: (1) Acute psychosis Status: Acute (2) Suicidal behavior Status: Acute Review of Systems Constitutional: No fever ENT: No hearing loss Respiratory: No cough Abdomen: No pain Male : No dysuria Neurologic: No memory loss Endo: No fatigue Physical Exam Vital Signs Vital Signs Past 24 Hours: Date Time Temp Pulse Resp B/P Pulse Ox O2 Delivery O2 Flow Rate FiO2 03/24/16 00:00 Room Air 03/23/16 23:27 36.5 86 18 160/96 99 Room Air 03/23/16 20:00 Room Air 03/23/16 15:38 Room Air 03/23/16 09:00 Room Air Physical Exam: General Appearance: WD/WN, no apparent distress Eyes: bilateral eyes normal inspection ENT: hearing grossly normal, pharynx normal Neck: supple, no JVD Respiratory/Chest: lungs clear Cardiovascular: no edema, no JVD Abdomen: non tender, no organomegaly Extremities: normal inspection Neurologic/Psychiatric: no motor/sensory deficits, oriented x 3 Skin: normal color, no rash Medications Medications: Current Inpatient Medications Medications (Trade) Dose Ordered Sig/Lisy Route Start Time Stop Time Status Last Admin Dose Admin Miscellaneous (Iv Fluids Completed) 1 ea PRN PRN N/A 03/22/16 23:15 03/22/17 23:14 Acetaminophen (Tylenol Tab) 650 mg Q4H PRN PO 03/22/16 23:00 04/21/16 22:59 Zolpidem Tartrate (Ambien Tab) 5 mg HSZ PRN PO 03/22/16 23:00 04/21/16 22:59 Ondansetron HCl 4 mg 4 mg Q6H PRN IV 03/22/16 23:00 04/21/16 22:59 Potassium Chloride/Sodium Chloride (Nss + 20meq KCl 1000ml) 1,000 ml @ 250 mls/hr Q4H IV 03/23/16 00:30 04/22/16 00:29 03/24/16 04:47 250 MLS/HR Laboratory Data Labs: Last 24 Hours Test 03/24/16 06:26 White Blood Count 11.35 K/uL Red Blood Count 4.32 M/uL Hemoglobin 13.6 g/dL Hematocrit 37.8 % Mean Corpuscular Volume 87.5 fL Mean Corpuscular Hemoglobin 31.5 pg Mean Corpuscular Hemoglobin Concent 36.0 g/dl Platelet Count 170 K/uL Mean Platelet Volume 8.8 fL Neutrophils (%) (Auto) 64.7 % Lymphocytes (%) (Auto) 25.3 % Monocytes (%) (Auto) 9.4 % Eosinophils (%) (Auto) 0.2 % Basophils (%) (Auto) 0.1 % Neutrophils # (Auto) 7.35 K/uL Lymphocytes # (Auto) 2.87 K/uL Monocytes # (Auto) 1.07 K/uL Eosinophils # (Auto) 0.02 K/uL Basophils # (Auto) 0.01 K/uL RDW Standard Deviation 38.0 fL RDW Coefficient of Variation 11.8 % Immature Granulocyte % (Auto) 0.3 % Immature Granulocyte # (Auto) 0.03 K/uL Prothrombin Time 12.7 SECONDS Prothromb Time International Ratio 1.2 Activated Partial Thromboplast Time 25.2 SECONDS Partial Thromboplastin Ratio 1.0 Sodium Level 141 mmol/L Potassium Level 4.0 mmol/L Chloride Level 106 mmol/L Carbon Dioxide Level 24 mmol/L Anion Gap 11.0 mmol/L Blood Urea Nitrogen 9 mg/dl Creatinine 0.96 mg/dl Est Creatinine Clear Calc Drug Dose 135.0 ml/min Estimated GFR () 131.4 Estimated GFR (Non- 113.3 BUN/Creatinine Ratio 9.1 Random Glucose 77 mg/dl Calcium Level 9.0 mg/dl Magnesium Level 2.3 mg/dl Total Bilirubin 0.7 mg/dl Direct Bilirubin 0.1 mg/dl Aspartate Amino Transf (AST/SGOT) 63 U/L Alanine Aminotransferase (ALT/SGPT) 56 U/L Alkaline Phosphatase 54 U/L Total Creatine Kinase 2189 U/L Total Protein 7.2 gm/dl Albumin 4.0 gm/dl Assessment and Plan A 20 yo male comes with 1. Suicidal ideation appreciated psychiatry consult. patient may require inpatient psychiatric admission based on suicidal ideation continue 1:1, was on restrains overnight, but now is calm The patient had been approved / excepted to go to [facility], however, he had elevated creatine kinase during screening laboratories, and when repeat labs were done at [facility]'s request, the CK had increased from 900's to 4000's , and they no longer agreed to accept the patient. He was then referred to the medical service for admission. 2. Elevated creatine kinase, unknown cause at this time, but may have just been due to relative immobility during the day possible mild rhabdomyolysis, with no renal involvement His CPK continue to improve with IVF and now in 1999`s. I feel comfortable discharging him to psychiatry unit and believe his CPK will continue to improve with oral hydration He is medically stable for a transfer to the psychiatry service today. The patient himself continues to have no medical symptoms at this time or earlier in the day.
--- NOTE | 2016-03-24 08:10 | Discharge Instructions ---
Discharge Instructions Admission Reason for Admission: Elevated Creatine Kinase Level, Suicidal Behavior Discharge Discharge Diagnosis / Problem: suicidal behavior, mild rhabdomyolysis Discharge Goals Goal(s): Increase independence, Improve disease control, Diagnostic testing, Therapeutic intervention Activity Recommendations Activity Limitations: resume your previous activity . Current Hospital Diet Patient's current hospital diet: Regular Diet Discharge Diet Recommended Diet: Regular Diet Pending Studies Studies pending at discharge: no Laboratory Results Last 24 Hours Test 03/24/16 06:26 White Blood Count 11.35 K/uL Red Blood Count 4.32 M/uL Hemoglobin 13.6 g/dL Hematocrit 37.8 % Mean Corpuscular Volume 87.5 fL Mean Corpuscular Hemoglobin 31.5 pg Mean Corpuscular Hemoglobin Concent 36.0 g/dl Platelet Count 170 K/uL Mean Platelet Volume 8.8 fL Neutrophils (%) (Auto) 64.7 % Lymphocytes (%) (Auto) 25.3 % Monocytes (%) (Auto) 9.4 % Eosinophils (%) (Auto) 0.2 % Basophils (%) (Auto) 0.1 % Neutrophils # (Auto) 7.35 K/uL Lymphocytes # (Auto) 2.87 K/uL Monocytes # (Auto) 1.07 K/uL Eosinophils # (Auto) 0.02 K/uL Basophils # (Auto) 0.01 K/uL RDW Standard Deviation 38.0 fL RDW Coefficient of Variation 11.8 % Immature Granulocyte % (Auto) 0.3 % Immature Granulocyte # (Auto) 0.03 K/uL Prothrombin Time 12.7 SECONDS Prothromb Time International Ratio 1.2 Activated Partial Thromboplast Time 25.2 SECONDS Partial Thromboplastin Ratio 1.0 Sodium Level 141 mmol/L Potassium Level 4.0 mmol/L Chloride Level 106 mmol/L Carbon Dioxide Level 24 mmol/L Anion Gap 11.0 mmol/L Blood Urea Nitrogen 9 mg/dl Creatinine 0.96 mg/dl Est Creatinine Clear Calc Drug Dose 135.0 ml/min Estimated GFR () 131.4 Estimated GFR (Non- 113.3 BUN/Creatinine Ratio 9.1 Random Glucose 77 mg/dl Calcium Level 9.0 mg/dl Magnesium Level 2.3 mg/dl Total Bilirubin 0.7 mg/dl Direct Bilirubin 0.1 mg/dl Aspartate Amino Transf (AST/SGOT) 63 U/L Alanine Aminotransferase (ALT/SGPT) 56 U/L Alkaline Phosphatase 54 U/L Total Creatine Kinase 2189 U/L Total Protein 7.2 gm/dl Albumin 4.0 gm/dl Medical Emergencies . Who to Call and When: Medical Emergencies: If at any time you feel your situation is an emergency, please call 911 immediately. . Non-Emergent Contact Non-Emergency issues call your: Primary Care Provider Call Non-Emergent contact if: you have any medication questions . Past History Medical & Surgical History: (1) Acute psychosis (2) Suicidal behavior (3) Elevated creatine kinase level . "Provider Documentation" section prepared by Aaron Huddleston. VTE Core Measure Inpt VTE Proph given/why not?: Treatment not indicated
[2016-03-24 08:15] VITALS: BP 131/76; PULSE 81; TEMP 36.7; O2SAT 99
--- NOTE | 2016-03-24 08:22 | Discharge Summary ---
Discharge Summary Admission Date: Mar 22, 2016 at 23:07 Discharge Date: Mar 24, 2016 Discharge Disposition: Acute care mental health Principal Diagnosis: suicidal ideation, cpk elevation Consultations: psych Medication Reconciliation Medication Profile: No Active Prescriptions or Reported Meds Discharge Exam Review of Systems: Constitutional: No chills ENT: No unusual epistaxis Respiratory: No sputum Cardiovascular: No orthopnea Abdomen: No nausea Genitourinary - Male: No hematuria Neurologic: No memory loss Psychiatric: No depression symptoms Endocrine: No fatigue Integumentary: No rash Physical Exam: General Appearance: WD/WN, no apparent distress Eyes: normal inspection, EOMI ENT: hearing grossly normal, pharynx normal Neck: supple, no JVD Respiratory/Chest: lungs clear, no respiratory distress Cardiovascular: no gallop, no JVD Abdomen / GI: soft, no organomegaly Extremities: normal inspection, normal capillary refill Neurologic/Psychiatric: alert, normal reflexes Skin: normal color, no rash Hospital Course A 20 yo male comes with 1. Suicidal ideation appreciated psychiatry consult. patient may require inpatient psychiatric admission based on suicidal ideation continue 1:1, was on restrains overnight, but now is calm The patient had been approved / excepted to go to [facility], however, he had elevated creatine kinase during screening laboratories, and when repeat labs were done at [facility]'s request, the CK had increased from 900's to 4000's , and they no longer agreed to accept the patient. He was then referred to the medical service for admission. 2. Elevated creatine kinase, unknown cause at this time, but may have just been due to relative immobility during the day possible mild rhabdomyolysis, with no renal involvement His CPK continue to improve with IVF and now in 1999`s. I feel comfortable discharging him to psychiatry unit and believe his CPK will continue to improve with oral hydration He is medically stable for a transfer to the psychiatry service today. The patient himself continues to have no medical symptoms at this time or earlier in the day. Total Time Spent: Greater than 30 minutes This includes examination of the patient, discharge planning, medication reconciliation, and communication with other providers. Discharge Instructions Please refer to the electronic Patient Visit Report (Discharge Instructions) for additional information.
--- NOTE | 2016-03-24 09:40 | DIAGNOSTIC IMAGING REPORT ---
RIGHT ANKLE 3 VIEWS HISTORY: right ankle swelling, pain COMPARISON: None. FINDINGS: There is no fracture or dislocation. Soft tissues are unremarkable. No radiopaque foreign bodies. IMPRESSION: No fractures. Electronically signed by: Eddie Baldwin M.D. 03/24/2016 9:38 AM Dictated Date/Time: 03/24/2016 9:36 AM
[2016-03-24 11:43] VITALS: BP 131/76; PULSE 81; TEMP 36.7; O2SAT 99
--- NOTE | 2016-03-24 12:32 | Psychiatric Progress Notes ---
Psychiatric Progress Note Date of Service Mar 24, 2016. Notes met with patient's father and also spoke with patient, little recollection of episode last pm, sedated from prns. Family initially very focussed on discharge to facility in [facility] area, reviewed risks/benefits of 302 vs 201 admission. Reviewed importance of starting treatment today and hopefully will clear quickly to goal of return home/outpatient in [facility]. Parents discussed with patient and all ultimately agreeable to 201, bed available here. 302 warrant denied. Will be transferred to 3 S. Case reviewed briefly with Dr. Huddleston.
[2016-03-26 19:35] LABS: SYNTHETIC CANNABINOIDS QL URIN NEGATIVE (Negative)
== END 2016-03-24 12:46 | DRG 885 ==
LOC: ENRESERVDT → ENRESERVTM → EDBD 00:25 → C.EDA 00:33 → C.4E 23:07
PROVIDERS: ADMIT Hospitalist; ATTEND Hospitalist
DX: F23 Brief psychotic disorder (principal); R45.851 Suicidal ideations; M62.82 Rhabdomyolysis; F12.10 Cannabis abuse, uncomplicated; R74.8 Abnormal levels of other serum enzymes

== ENCOUNTER 2016-03-24 13:02 | Inpatient (IN) | payer BC, OTHER ==
[~2016-03-24] VITALS: Ht 175.3 cm; Wt 84.0 kg
[2016-03-24] MEDS ORDERED: HALOPERIDOL 5 MG TAB PO PRN (13:30)
[2016-03-24] MEDS ORDERED: BISMUTH SUBSALICYLATE PER ML OMNICELL CHARGE PO PRN (13:30)
[2016-03-24] MEDS ORDERED: SODIUM CHLORIDE 0.65% NA SOLN 45 ML (OCEAN) PRN (13:30)
[2016-03-24] MEDS ORDERED: BENZTROPINE MESYLATE 0.5 MG TAB PO PRN (13:30)
[2016-03-24] MEDS ORDERED: MAGNESIUM HYDROXIDE SUSP 30 ML UDC PO PRN (13:30)
[2016-03-24] MEDS ORDERED: ALUMINUM/MAGNESIUM SUSP 30 ML UDC PO PRN (13:30)
[2016-03-24] MEDS ORDERED: hydrOXYzine HCL 25 MG TAB PO PRN (13:30)
[2016-03-24 14:16] VITALS: BP 144/77; PULSE 96; TEMP 36.8; BMI 27.3
--- NOTE | 2016-03-24 14:43 | HISTORY & PHYSICAL EXAMINATION ---
DATE OF ADMISSION: 03/24/2016 IDENTIFYING DATA: Pro Cortez is a 20-year-old -Citizen Of [place] male from the [place] area who is currently a student at [employer]. He was brought to the Emergency Department by police after making suicidal statements and barricading himself in the bathroom due to paranoia. CHIEF COMPLAINT: "I'm feeling better now, not sure what happened." HISTORY OF PRESENT ILLNESS: Pro Cortez has no previous psychiatric history. He was hanging out with friends and de admits to using alcohol and marijuana. Soon after, he started to feel unsafe. This ultimately culminated in suicidal ideation. He asked friends to call suicide hotline as he was having thoughts about cutting his own throat. He then felt threatened by the same people that were trying to help him and barricaded himself in the bathroom. At that point there was a 302 petitioning statement from police officers. He apparently appeared to be hallucinating at the time. When he was initially seen in psychiatric consultation by [facility] on 03/23/2016 he stated that his mood in general had been good at baseline. He denied any history of paranoia or manic symptoms. His parents were also met with/consulted and they confirmed that this was acute onset and very unlike him. They had not noticed any specific symptoms over holiday break but father feels that he is stressed due to classes and perhaps relationships. The patient was initially calm on the medical floor, but then a 302 warrant had to be issued as he tried to elope from the hospital, sprained his ankle and swung at police. He required Ativan and Haldol. Today he is tired. He recalls being angry yesterday and wanting to leave, but cannot verbalize specifically why. He denies paranoid thoughts. He is thankful to have his family at bedside. He understands that he needs to be in the hospital for a longer period of monitoring. He was ultimately felt to understand risks, benefits, alternatives regarding 201 versus 302 admission and signed into the hospital on 201. CURRENT MEDICATIONS: None. PAST PSYCHIATRIC HISTORY: None. Family did confirm he has never been hospitalized. He has never had a suicide attempt. ACCESS TO GUNS denied. PAST MEDICAL HISTORY: Denied for obesity, diabetes, dyslipidemia, hypertension, cardiovascular disease. He is a nonsmoker. He has no chronic health issues. FAMILY HISTORY: Mother endorses some family history of obesity, hypertension, possibly diabetes. Did not report cardiovascular disease. There is no family history of psychiatric issues or suicide. SUBSTANCE USE HISTORY: The patient did have an underage drinking charge last year and completed the [employer] program. He smokes marijuana one joint more regularly on breaks, less regularly when he is in school. By regularly means up to a few times a week. He drinks alcohol, primarily beer, occasionally shots up to 4 or 5 on weekends. PERSONAL HISTORY: The patient grew up outside of [place] is raised by both parents. He has 3 siblings. 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 He works in [employer]. He is not currently in a relationship, never been . He has no children. Lives in an apartment with 3 new roommates. No legal issues currently. He denies a history of psychological trauma. MENTAL STATUS EXAMINATION: A 20-year-old -Citizen [place] male who is alert and cooperative. Eye contact is fair. There is no psychomotor restlessness. His speech is normal in rate and volume. Affect is somewhat blunted but did interact spontaneously with mother. He describes his baseline mood as "happy" . His thought processes remain a bit disorganized. He denies paranoia. He was not guarded. No true thought blocking. Denied auditory or visual hallucinations. He denies suicidal thoughts currently. He denies homicidal ideation. He is fully oriented, fund of knowledge appears to be intact. Intelligence is consistent with level of education. Insight and judgment are somewhat limited, but improving. OBJECTIVE: VITAL SIGNS: Were stable on transfer from the medical floor where he was medically cleared, accept Dr. Huddleston physical as medical clearance. LABORATORY STUDIES: Upon admission were significant for WBC 11.35. No thyroid panel was obtained. Sed rate was normal. Hemoglobin and hematocrit just below normal limits. No electrolyte abnormalities. AST 63. The patient's creatinine kinase peaked at 2189. I did confirm with the lab that synthetics were ordered and are pending from send out lab, urine tox positive for MJ. IMPRESSION: A 20-year-old [employer] student with no prior psychiatric history who presents with acute onset of significant paranoia and suicidal thoughts following marijuana and alcohol ingestion. He remained somewhat paranoid on the floor and had a period of agitation since initial consult. Seems much clearer following Haldol and Ativan p.r.n. IMPRESSION: Substance induced psychotic disorder. PLAN: The patient's safety will be maintained in a locked inpatient unit with suicide/behavioral checks according to protocol. I have spoken with both of his parents today. They feel he is not yet back to his baseline, remain hopeful that they can avoid regular antipsychotic medication. Bipolar disorder remains in differential, again seems primarily substance induced but course will significantly determine this. He has no prior history of violence to self or others in the past 6 months. Family session will be held to help to facilitate followup in the [place] area as he does plan to withdraw from the semester and return home for additional support and supervision as he pursues ongoing treatment. ANDI
[2016-03-24] MEDS ORDERED: INFLUENZA ADMINISTRATION CHARGE ONE (15:00)
[2016-03-24] MEDS ORDERED: INFLUENZA VIRUS QUAD VACCINE 0.5 ML SYR IM. ONE (15:00)
[2016-03-24] MEDS: IBUPROFEN 600 MG TAB PO PRN (15:22)
[2016-03-24] MEDS: ACETAMINOPHEN 325 MG TAB PO PRN (18:48)
[2016-03-25 06:53] VITALS: BP_SYST 113; BP_SYST 114; BP_DIAS 67; BP_DIAS 80; PULSE 73; PULSE 82; TEMP 36.6
[2016-03-25 06:54] VITALS: Ht 175.3 cm; Wt 84.0 kg
[2016-03-25 08:19] LABS: ALT/SGPT 56 U/L (12-78); AST/SGOT 55 U/L (15-37)
[2016-03-25] MEDS: hydrOXYzine HCL 25 MG TAB PO PRN (08:44)
[2016-03-25] MEDS: IBUPROFEN 600 MG TAB PO PRN (08:57)
--- NOTE | 2016-03-25 09:10 | Psychiatric Progress Notes ---
Progress Note Date of Service Mar 25, 2016. Interval History 20 yo male transfer from medical floor yesterday on 201, admit following ETOH and MJ ingestion with acute paranoia that escalated to SI with barricading himself from bathroom. Elopement attempt 03/23/15 from medical floor. Chief Complaint "I usually work out in the am", when commenting on restlessness Subjective Patient was seen & assessed interval progress reviewed with nursing and Dr. Gómez. Cooperative with unit routines over night. Did voice nonspecific paranoia to nurse this am and appeared restless. Started with Vistaril prn. Met with patient -on- soon after, at time he did not seem guarded nor did he attribute restlessness to anxiety. His ambulation improved and decrease swelling of right ankle. 3 hours later he requested prn, felt afraid to attend group and to use unlocked quiet room as a calm down space. He received Risperdal prn then voiced SI to staff (no intent or plan), took prn Ativan. I reassessed patient at 12:15 pm, denied suicidal thoughts. Review of Systems Psych: denies symptoms other than stated above Constitutional: denied Cardiovascular: denied GI: denied Neurologic: denied Remainder of 10 body systems also reviewed and denied other than noted above. Sleep Information Total Hours of Sleep: 8.00 Meal Information Percent of Breakfast Consumed: 100 Percent of Lunch Consumed: 100 Percent of Dinner Consumed: 50 Mental Status Exam During interview pt is: alert and oriented Appearance: appropriately dressed, appropriately groomed Eye contact is: fair Motor behavior is: no abnormal motor movements, other (some psychomotor restlessness prior to prns) Speech: other (non spontaneous at times) Mood is: other ("fine now thanks") Thought process: concrete Thought content: paranoid (nonspecific) Suicidal thought are: denied Homicidal thoughts are: denied Hallucinations: denies auditory, denies visual Cognition: language grossly intact Intelligence estimated to be: consistent with level of education Insight: poor Judgement: poor Summary of Past History 20 yo male with first episode of paranoia/SI following MJ use/ETOH, has exhibited impulsive behavior and some restlessness as AMS resolved. No baseline history of mood disorder or negative prodrome. Suspect bipolar as mood lability seems primary/more pronounced then level of thought disorganization but will continue with unspecified psychotic disorder ( initially seemed substance induced psychosis but ongoing) Continued Inpatient Care Continued inpatient hospitalization is medically necessary for ongoing monitoring and safety. Plan (1) Psychotic disorder 03/25/15 CRG given current prn Haldol at 5 mg was for agitation, reviewed with patient use of Risperdal 1 mg BID prn for mood stabilization and paranoia, will likely need to move to standing order metabolic screening labs in am (2) Elevated creatine kinase level 03/25/15 CRG CPK improved this am, repeat in am Visit Code E&M Code: 17653 Data Vital Signs Last 24 Hrs: Date Time Temp Pulse Resp B/P Pulse Ox O2 Delivery O2 Flow Rate FiO2 03/25/16 06:53 36.6 82 16 114/67 73 113/80 03/24/16 14:16 36.8 96 16 144/77 Meds Administered Last 24 Hrs: Meds Administered (Past 24Hrs) Medications (Trade) Dose Ordered Sig/Lisy Route Start Time Stop Time Status Last Admin Dose Admin Acetaminophen (Tylenol Tab) 650 mg Q4H PRN PO 03/24/16 13:30 04/23/16 13:29 03/24/16 18:48 650 MG Hydroxyzine HCl (Vistaril Tab) 25 mg Q4H PRN PO 03/24/16 13:30 04/23/16 13:29 03/25/16 08:44 25 MG Ibuprofen (Motrin Tab) 600 mg Q6 PRN PO 03/24/16 13:30 04/23/16 13:29 03/25/16 08:57 600 MG Lab Results Last 24 Hrs: Last 24 Hours Test 03/25/16 07:11 Aspartate Amino Transf (AST/SGOT) 55 U/L Alanine Aminotransferase (ALT/SGPT) 56 U/L Total Creatine Kinase 1858 U/L
[2016-03-25] MEDS: RISPERIDONE 1 MG TAB PO PRN ×2 (11:13→15:44)
[2016-03-25] MEDS: LORAZEPAM 2 MG TAB PO PRN (11:52)
[2016-03-26 07:00] VITALS: BP_SYST 113; BP_SYST 126; BP_DIAS 73; BP_DIAS 80; PULSE 63; PULSE 86; TEMP 36.6
[2016-03-26 08:02] LABS: CHOLESTEROL/HDL RATIO 3.2
--- NOTE | 2016-03-26 08:30 | Psychiatric Progress Notes ---
Progress Note Date of Service Mar 26, 2016. Interval History 20 yo male transfer from medical floor 03/23/16 on 201 voluntary admission following ETOH and MJ ingestion with acute paranoia that escalated to SI and erratic behavior, barricading himself from bathroom. Elopement attempt 03/23/15 from medical floor. Chief Complaint "I had a like a panic attack, and had suicidal thoughts". Subjective Patient was seen & assessed interval progress reviewed with nursing. Staff report he remains psychotic, is getting frequent prns, and yesterday got Vistaril, Risperdal and Ativan due to psychosis and SI. He refused groups, very paranoid and isolating in his room for much of the day. He reported feeling agitated and restless and got another Risperdal prn later in the day, which he said was helpful. Today he was seen in his room, and says he is feeling better, but continues to have episodic anxiety and "paranoia," which he describes as "I just get scared, think people are going to turn on me, in a violent way." He says now he feels safe here, and is not sure where these fears come from. He also talks about fearing , although he is still having episodic SI, last yesterday. He thinks the Risperdal helped to calm him down and clear his thoughts. He is not sure what triggered his anxiety, paranoia and SI yesterday, saying he was "just thinking about it, and it came back." He has been talking with his family, as both siblings and parents were here and visited, and is thinking about trying to return to school and work vs withdrawing for the semester and returning home. He is eating and drinking here, and says he slept fairly well last night. Mood is "pretty good, pretty chill, a little bit anxious at times and a little bit paranoid at times." Sleep Information Total Hours of Sleep: 5.25 Meal Information Percent of Breakfast Consumed: 100 Percent of Lunch Consumed: 100 Percent of Dinner Consumed: 100 Mental Status Exam During interview pt is: alert and oriented, cooperative Appearance: appropriately dressed, appropriately groomed Eye contact is: fair Motor behavior is: other (some psychomotor restlessness, fidgeting and pacing) Speech: normal in rate, rhythm & volume Affect: anxious (but reactive, appropriate) Mood is: other ("pretty good, pretty chill") Thought process: concrete, other (vague, ? blocking) Thought content: paranoid (nonspecific) Suicidal thought are: present (episodic) Homicidal thoughts are: denied Hallucinations: denies auditory, denies visual Cognition: language grossly intact Intelligence estimated to be: consistent with level of education Insight: poor Judgement: poor Summary of Past History 20 yo male with first episode of paranoia/SI in the context of cannabis and alcohol use, with erratic, impulsive behavior and some restlessness as AMS resolved, and continues to be paranoid. No baseline history of mood disorder or negative prodrome. Initially symptoms appeared substance induced, but they have continued long past the expected duration/intoxication phase. Suspect bipolar as mood lability seems primary/more pronounced then level of thought disorganization, but will continue with unspecified psychotic disorder. Continued Inpatient Care Continued inpatient hospitalization is medically necessary for ongoing monitoring and safety. Plan (1) Psychotic disorder 03/25/15 - CRG given current prn Haldol at 5 mg was for agitation, reviewed with patient use of Risperdal 1 mg BID prn for mood stabilization and paranoia, will likely need to move to standing order metabolic screening labs in am 03/26 - Required multiple prns of Risperdal yesterday for psychosis, feelings of agitation, and SI yesterday. Will schedule Risperdal 1mg bid. Fasting labs checked today and were WNLs. - Schedule family meeting with parents. Patient considering continuing with school vs withdrawing for the semester and returning home. (2) Elevated creatine kinase level 03/25/16 CRG CPK improved this am (1,858), repeat in am 03/26 - CK remains high but decreased from yesterday (1,124) (3) Alcohol abuse As psychosis clears, will require education about the risks of ongoing alcohol use and recommendations for abstinence (4) Cannabis abuse As psychosis clears, will require education about the risks of ongoing cannabis use and recommendations for abstinence Visit Code E&M Code: 32557 Data Vital Signs Last 24 Hrs: Date Time Temp Pulse Resp B/P Pulse Ox O2 Delivery O2 Flow Rate FiO2 03/26/16 07:00 36.6 63 16 113/73 86 126/80 Meds Administered Last 24 Hrs: Meds Administered (Past 24Hrs) Medications (Trade) Dose Ordered Sig/Lisy Route Start Time Stop Time Status Last Admin Dose Admin Acetaminophen (Tylenol Tab) 650 mg Q4H PRN PO 03/24/16 13:30 04/23/16 13:29 03/24/16 18:48 650 MG Hydroxyzine HCl (Vistaril Tab) 25 mg Q4H PRN PO 03/24/16 13:30 04/23/16 13:29 03/25/16 08:44 25 MG Ibuprofen (Motrin Tab) 600 mg Q6 PRN PO 03/24/16 13:30 04/23/16 13:29 03/25/16 08:57 600 MG Benztropine Mesylate (Cogentin Tab) 0.5 mg Q6 PRN PO 03/24/16 13:30 04/23/16 13:29 03/25/16 15:45 0.5 MG Lorazepam (Ativan Tab) 2 mg Q6 PRN PO 03/24/16 13:30 04/23/16 13:29 03/25/16 11:52 2 MG Influenza Virus Vaccine Quadrival (Flu Vaccine) 0.5 ml ONCE ONCE IM. 03/24/16 15:00 03/24/16 15:01 DC 03/25/16 23:09 0.5 ML Risperidone (Risperdal Tab) 1 mg BID PRN PO 03/25/16 09:15 04/24/16 09:14 03/25/16 15:44 1 MG Lab Results Last 24 Hrs: Last 24 Hours Test 03/26/16 06:50 Random Glucose 95 mg/dl Total Creatine Kinase 1124 U/L Triglycerides Level 75 mg/dl Cholesterol Level 168 mg/dl HDL Cholesterol 52 mg/dl LDL Cholesterol, Calculated 101 mg/dl VLDL Cholesterol, Calculated 15 mg/dl Cholesterol/HDL Ratio 3.2
[2016-03-26] MEDS: RISPERIDONE 1 MG TAB PO PRN (11:58)
[2016-03-26] MEDS: LORAZEPAM 2 MG TAB PO PRN ×2 (13:00→13:24)
[2016-03-26] MEDS ORDERED: LORAZEPAM 1 MG TAB PO PRN (13:30)
[2016-03-26 13:33] VITALS: BP 163/87; PULSE 118
[2016-03-26] MEDS ORDERED: GABAPENTIN 600 MG TAB PO ONE (14:00)
[2016-03-26 14:12] VITALS: BP 139/75; PULSE 112; TEMP 36
[2016-03-26 16:18] VITALS: BP 141/86; PULSE 99; TEMP 37.5
--- NOTE | 2016-03-26 16:35 | Progress Note ---
Progress Note called by RN due to gonococcus present in urine, patient has gonococcal urethritis, ordered IM ceftriaxone 250 mg once and oral azithromycin 1000 mg once and will monitor for dysuria and discharge from penis
[2016-03-26] MEDS ORDERED: CEFTRIAXONE SOD 350MG/ML 1 GM VIAL IM ONE (16:45)
[2016-03-26] MEDS ORDERED: AZITHROMYCIN 250 MG TAB PO ONE (16:45)
[2016-03-26] MEDS ORDERED: CEFTRIAXONE SOD IM ONE (17:00)
[2016-03-26 20:36] VITALS: BP 143/83; PULSE 120; PULSE 128; TEMP 36.7
[2016-03-26] MEDS: GABAPENTIN 600MG Q6H DOSE PO SCH (20:57)
[2016-03-26] MEDS: RISPERIDONE 1 MG TAB PO SCH (22:00)
[2016-03-26 23:14] VITALS: BP 117/75; PULSE 99; TEMP 36.7
[2016-03-27] MEDS: GABAPENTIN 600MG Q6H DOSE PO SCH (06:27)
[2016-03-27 06:49] VITALS: BP_SYST 127; BP_SYST 129; BP_DIAS 81; BP_DIAS 92; PULSE 70; PULSE 84; TEMP 36.6
[2016-03-27] MEDS: RISPERIDONE 1 MG TAB PO SCH ×2 (08:07→21:26)
[2016-03-27 10:07] VITALS: BP 157/89; PULSE 112; TEMP 36.5
--- NOTE | 2016-03-27 12:03 | Psychiatric Progress Notes ---
Progress Note Date of Service Mar 27, 2016. Interval History 20 yo male transfer from medical floor 03/23/16 on 201 voluntary admission following ETOH and MJ ingestion with acute paranoia that escalated to SI and erratic behavior, barricading himself from bathroom. Elopement attempt 03/23/15 from medical floor. Chief Complaint "Great.". Subjective Patient was seen & assessed interval progress reviewed with Treatment Team. The patient looks back on this episode and explains that both before the hospitalization and during, he had periods of "fearfulness" during which he thought people were going to harm him, resulting in him making suicidal statements, and running from the hospital. He says that since coming to the mental health unit he has not had fearful moments. He said that those events seemed "unreal" and led to paranoia. He denies ideas of reference, thought insertion or broadcasting at any point. He had been talking with his parents about withdrawing from school this semester, but since he is feeling better, he is considering staying in school and returning to work. He also reviewed that over break and since return to school, he has been drinking 3-6 shots of alcohol daily and smoking cannabis . Today he denies any paranoia, fearfulness , SI/HI, or hallucinations. Review of Systems Constitutional: No chills, No fatigue, No fever, No problem reported, No sweats , No weakness, No weight loss ENT: No dental problems, No hearing loss, No nasal symptoms, No problem reported, No sore throat, No tinnitus, No trouble swallowing, No unusual epistaxis Respiratory: No cough, No dyspnea at rest, No dyspnea on exertion, No hemoptysis, No problem reported, No shortness of breath, No sputum, No wheezing Cardiovascular: No PND, No chest pain, No claudication, No edema, No orthopnea , No palpitations, No problem reported Abdomen: No GI bleeding, No constipation, No diarrhea, No nausea, No pain, No problem reported, No vomiting Musculoskeletal: No calf pain, No joint pain, No muscle pain, No problem reported, No swelling Neurologic: No balance problems, No memory loss, No numbness/tingling, No paralysis, No problem reported, No vertigo, No weakness Psychiatric: No anhedonism, No anxiety, No depression symptoms, No insomnia, No problem reported, No substance abuse Integumentary: No bleeding, No color change, No itch, No new/changing skin lesions, No problem reported, No rash Sleep Information Total Hours of Sleep: 6.50 Meal Information Percent of Breakfast Consumed: 5 Percent of Lunch Consumed: 100 Percent of Dinner Consumed: 100 Mental Status Exam During interview pt is: alert and oriented, cooperative Appearance: appropriately dressed, appropriately groomed Eye contact is: fair Motor behavior is: steady gait & station Speech: normal in rate, rhythm & volume Affect: euthymic, anxious (but reactive, appropriate) Mood is: other ("Great") Thought process: goal directed, clear, coherent Thought content: paranoid (nonspecific, resolving) Suicidal thought are: present (episodic) Homicidal thoughts are: denied Hallucinations: denies auditory, denies visual Cognition: language grossly intact Intelligence estimated to be: consistent with level of education Insight: poor Judgement: poor Summary of Past History 20 yo male with first episode of paranoia/SI in the context of cannabis and alcohol use, with erratic, impulsive behavior and some restlessness as AMS resolved, and continues to be paranoid. No baseline history of mood disorder or negative prodrome. Initially symptoms appeared substance induced, but they have continued long past the expected duration/intoxication phase. Suspect bipolar as mood lability seems primary/more pronounced then level of thought disorganization, but will continue with unspecified psychotic disorder. Impression The patient is adjusting to the unit, and today is denying paranoia or fearfulness. He admits now that he was drinking steadily, and at higher quantities that he previously admitted in addition to smoking week, which may have played a part. Discussion to date has been about the patient withdrawing from school and returning home, something he is now reconsidering. FAmily meeting is scheduled for tomorrow for further discussion. He has no side effects to Risperdal 1 mg. BID and so will continue. He will need psychiatric follow up, but will need to decide first where he will be living. Continued Inpatient Care Continued inpatient hospitalization is medically necessary for ongoing monitoring and safety. Plan (1) Psychotic disorder 03/25/15 - CRG given current prn Haldol at 5 mg was for agitation, reviewed with patient use of Risperdal 1 mg BID prn for mood stabilization and paranoia, will likely need to move to standing order metabolic screening labs in am 03/26 - Required multiple prns of Risperdal yesterday for psychosis, feelings of agitation, and SI yesterday. Will schedule Risperdal 1mg bid. Fasting labs checked today and were WNLs. - Schedule family meeting with parents. Patient considering continuing with school vs withdrawing for the semester and returning home. 03/27 - Continue Risperdal 1 mg. BID and prns - Family meeting scheduled for tomorrow with parents. (2) Elevated creatine kinase level 03/25/16 CRG CPK improved this am (1,858), repeat in am 03/26 - CK remains high but decreased from yesterday (1,124) 03/27 -Trending down (3) Alcohol abuse As psychosis clears, will require education about the risks of ongoing alcohol use and recommendations for abstinence 03/27 - [facility]SS protocol using gabapentin, in view of admission of heavier alcohol abuse than perviously reported - REcommend abstinence (4) Cannabis abuse As psychosis clears, will require education about the risks of ongoing cannabis use and recommendations for abstinence Visit Code E&M Code: 14811 Risk Factors Assessment Male: Yes : No /single/: No Higher / Fall in social status: No Access to guns: No Health problems: No Mental Health Diagnoses: No Substance use disorders: Yes Previous attempt: No Previous attempt;highly lethal: No Previous psychiatric stay: No Hopelessness: No Smoker: No Protective Factors Assessment : No Responsible for young children: No Employed: Yes Stable relationships: Yes Supportive family: Yes Data Vital Signs Last 24 Hrs: Date Time Temp Pulse Resp B/P Pulse Ox O2 Delivery O2 Flow Rate FiO2 03/27/16 10:07 36.5 112 18 157/89 03/27/16 06:49 36.6 70 16 127/81 84 129/92 03/26/16 23:14 36.7 99 12 117/75 03/26/16 20:36 36.7 128 14 143/83 120 03/26/16 16:18 37.5 99 14 141/86 03/26/16 14:12 36.0 112 18 139/75 03/26/16 13:33 118 20 163/87 Meds Administered Last 24 Hrs: Meds Administered (Past 24Hrs) Medications (Trade) Dose Ordered Sig/Lisy Route Start Time Stop Time Status Last Admin Dose Admin Risperidone (Risperdal Tab) 1 mg BID PO 03/26/16 22:00 04/25/16 21:59 03/27/16 08:07 1 MG Lorazepam (Ativan Tab) 1-3mg per [facility]SS UD PRN PO 03/26/16 13:30 04/25/16 13:29 03/26/16 21:01 1 MG Gabapentin (Neurontin Tab) 1,200 mg TODAY@1400 ONCE PO 03/26/16 14:00 03/26/16 14:01 DC 03/26/16 14:11 1,200 MG Gabapentin (Neurontin Tab) 600 mg TODAY@0600,2000 PO 03/26/16 20:00 03/27/16 06:01 DC 03/27/16 06:27 600 MG Azithromycin 1000 mg 1,000 mg NOW ONCE PO 03/26/16 16:45 03/26/16 16:46 DC 03/26/16 20:57 1,000 MG Ceftriaxone Sodium/Syringe (Rocephin Im/ Syringe) 0.7143 ml @ 0 mls/hr 1700 ONCE IM 03/26/16 17:00 03/26/16 17:01 DC 03/26/16 17:00 0.1 MLS/HR Lab Results Last 24 Hrs: 03/26/16 06:50 Test 03/25/16 07:11 03/26/16 06:50 Aspartate Amino Transf (AST/SGOT) 55 U/L (15-37) Alanine Aminotransferase (ALT/SGPT) 56 U/L (12-78) Total Creatine Kinase 1124 U/L (39-308) Triglycerides Level 75 mg/dl (0-150) Cholesterol Level 168 mg/dl (0-200) HDL Cholesterol 52 mg/dl LDL Cholesterol, Calculated 101 mg/dl VLDL Cholesterol, Calculated 15 mg/dl Cholesterol/HDL Ratio 3.2 Problem Qualifiers (1) Psychotic disorder: Psychosis type: unspecified psychosis type Qualified Codes: F29 - Unspecified psychosis not due to a substance or known physiological condition
[2016-03-27] MEDS: GABAPENTIN 600MG Q8H DOSE PO SCH ×2 (14:12→21:26)
[2016-03-27 14:18] VITALS: BP 131/89; PULSE 94; TEMP 36.8
[2016-03-27 17:55] VITALS: BP 127/76; PULSE 89; TEMP 37.1
[2016-03-27] MEDS: ACETAMINOPHEN 325 MG TAB PO PRN (19:18)
[2016-03-27 21:53] VITALS: BP 132/77; PULSE 102; TEMP 36.9
[2016-03-28] MEDS: GABAPENTIN 600MG Q8H DOSE PO SCH (06:16)
[2016-03-28 06:48] VITALS: BP_SYST 136; BP_SYST 145; BP_DIAS 85; BP_DIAS 90; PULSE 52; PULSE 88; TEMP 36.6
[2016-03-28 08:08] VITALS: BP 149/90; PULSE 92; TEMP 36.5
[2016-03-28] MEDS: OMEGA-3 (PURIFIED FISH OIL) 1 GM CAP PO SCH (08:31)
[2016-03-28] MEDS: RISPERIDONE 1 MG TAB PO SCH (08:31)
[2016-03-28 12:03] VITALS: BP 148/92; PULSE 109; TEMP 36.5
--- NOTE | 2016-03-28 13:05 | Psychiatric Progress Notes ---
Progress Note Date of Service Mar 28, 2016. Interval History 20 yo male transfer from medical floor 03/23/16 on 201 voluntary admission following ETOH and MJ ingestion with acute paranoia that escalated to SI and erratic behavior, barricading himself from bathroom. Elopement attempt 03/23/15 from medical floor. Chief Complaint "Pretty good.". Subjective Patient was seen & assessed interval progress reviewed with Treatment Team. The patient says that he feels tired today. His family meeting with his parents yesterday went "well". He feels supported by them. He is still considering whether he wants to withdraw from school and return home for the semester or not, but parents are looking for psychiatric providers in their home area. He says that one of his stressors has been his sexuality, and has been able to "come out" to his parents while here. He was relieved that they did not react negatively. he says that he has long tried to hint at his sexuality, but did not come out clearly and tell them. He says that he has had no further fearful/paranoid times, and denies any further SI. Review of Systems Constitutional: + fatigue ENT: No dental problems, No hearing loss, No nasal symptoms, No problem reported, No sore throat, No tinnitus, No trouble swallowing, No unusual epistaxis Respiratory: No cough, No dyspnea at rest, No dyspnea on exertion, No hemoptysis, No problem reported, No shortness of breath, No sputum, No wheezing Cardiovascular: No PND, No chest pain, No claudication, No edema, No orthopnea , No palpitations, No problem reported Abdomen: No GI bleeding, No constipation, No diarrhea, No nausea, No pain, No problem reported, No vomiting Musculoskeletal: No calf pain, No joint pain, No muscle pain, No problem reported, No swelling Neurologic: No balance problems, No memory loss, No numbness/tingling, No paralysis, No problem reported, No vertigo, No weakness Psychiatric: No anhedonism, No anxiety, No depression symptoms, No insomnia, No problem reported, No substance abuse Integumentary: No bleeding, No color change, No itch, No new/changing skin lesions, No problem reported, No rash Sleep Information Total Hours of Sleep: 6.50 Meal Information Percent of Breakfast Consumed: 100 Percent of Lunch Consumed: 80 Percent of Dinner Consumed: 100 Mental Status Exam During interview pt is: alert and oriented, cooperative Appearance: appropriately dressed, appropriately groomed Eye contact is: fair Motor behavior is: steady gait & station Speech: normal in rate, rhythm & volume Affect: euthymic, anxious (but reactive, appropriate) Mood is: other ("Great") Thought process: goal directed, clear, coherent Thought content: reality based without delusions Suicidal thought are: denied Homicidal thoughts are: denied Hallucinations: denies auditory, denies visual Cognition: language grossly intact Intelligence estimated to be: consistent with level of education Insight: poor Judgement: poor Summary of Past History 20 yo male with first episode of paranoia/SI in the context of cannabis and alcohol use, with erratic, impulsive behavior and some restlessness as AMS resolved, and continues to be paranoid. No baseline history of mood disorder or negative prodrome. Initially symptoms appeared substance induced, but they have continued long past the expected duration/intoxication phase. Suspect bipolar as mood lability seems primary/more pronounced then level of thought disorganization, but will continue with unspecified psychotic disorder. Impression Pro continues to improve, and today denies paranoia or SI. Sexuality has been a stressor, but now parents are aware and accepting. Parents looking for psychiatric providers at home and we are hopeful he will agree to withdraw from the semester and return home to recooperate. Urine culture positive for gonorrhea, which our lab automatically reports to the state. Has recieved ABX. patient hopeful for discharge as soon as tomorrow if aftercare can be arranged. Continued Inpatient Care Continued inpatient hospitalization is medically necessary for ongoing monitoring and safety. Plan (1) Psychotic disorder 03/25/15 - CRG given current prn Haldol at 5 mg was for agitation, reviewed with patient use of Risperdal 1 mg BID prn for mood stabilization and paranoia, will likely need to move to standing order metabolic screening labs in am 03/26 - Required multiple prns of Risperdal yesterday for psychosis, feelings of agitation, and SI yesterday. Will schedule Risperdal 1mg bid. Fasting labs checked today and were WNLs. - Schedule family meeting with parents. Patient considering continuing with school vs withdrawing for the semester and returning home. 03/27 - Continue Risperdal 1 mg. BID and prns - Family meeting scheduled for tomorrow with parents. 03/28 - Continue current meds - REcommend patient consider withdrawing from school - Will need aftercare appointments (2) Elevated creatine kinase level 03/25/16 CRG CPK improved this am (1,858), repeat in am 03/26 - CK remains high but decreased from yesterday (1,124) 03/27 -Trending down (3) Alcohol abuse As psychosis clears, will require education about the risks of ongoing alcohol use and recommendations for abstinence 03/27 - AWSS protocol using gabapentin, in view of admission of heavier alcohol abuse than perviously reported - REcommend abstinence (4) Cannabis abuse As psychosis clears, will require education about the risks of ongoing cannabis use and recommendations for abstinence (5) Gonorrhea 03/28 - Treated with ABX per Dr. Huddleston - REported to the state per lab Visit Code E&M Code: 82078 Risk Factors Assessment Male: Yes : No /single/: No Higher / Fall in social status: No Access to guns: No Health problems: No Mental Health Diagnoses: No Substance use disorders: Yes Previous attempt: No Previous attempt;highly lethal: No Previous psychiatric stay: No Hopelessness: No Smoker: No Protective Factors Assessment : No Responsible for young children: No Employed: Yes Stable relationships: Yes Supportive family: Yes Data Vital Signs Last 24 Hrs: Date Time Temp Pulse Resp B/P Pulse Ox O2 Delivery O2 Flow Rate FiO2 03/28/16 12:03 36.5 109 16 148/92 03/28/16 08:08 36.5 92 16 149/90 03/28/16 06:48 36.6 52 16 136/90 88 145/85 03/27/16 21:53 36.9 102 16 132/77 03/27/16 17:55 37.1 89 16 127/76 03/27/16 14:18 36.8 94 18 131/89 Meds Administered Last 24 Hrs: Meds Administered (Past 24Hrs) Medications (Trade) Dose Ordered Sig/Lisy Route Start Time Stop Time Status Last Admin Dose Admin Risperidone (Risperdal Tab) 1 mg BID PO 03/26/16 22:00 04/25/16 21:59 03/28/16 08:31 1 MG Lorazepam (Ativan Tab) 1-3mg per AWSS UD PRN PO 03/26/16 13:30 04/25/16 13:29 03/26/16 21:01 1 MG Gabapentin (Neurontin Tab) 1,200 mg TODAY@1400 ONCE PO 03/26/16 14:00 03/26/16 14:01 DC 03/26/16 14:11 1,200 MG Gabapentin (Neurontin Tab) 600 mg TODAY@0600,2000 PO 03/26/16 20:00 03/27/16 06:01 DC 03/27/16 06:27 600 MG Gabapentin (Neurontin Tab) 600 mg TODAY@0600,1400,2200 PO 03/27/16 14:00 03/28/16 06:01 DC 03/28/16 06:16 600 MG Azithromycin 1000 mg 1,000 mg NOW ONCE PO 03/26/16 16:45 03/26/16 16:46 DC 03/26/16 20:57 1,000 MG Ceftriaxone Sodium/Syringe (Rocephin Im/ Syringe) 0.7143 ml @ 0 mls/hr 1700 ONCE IM 03/26/16 17:00 03/26/16 17:01 DC 03/26/16 17:00 0.1 MLS/HR Fish Oil (Landers-3 (Purified Fish Oil) Cap) 1 gm QAM PO 03/28/16 09:00 04/27/16 08:59 03/28/16 08:31 1 GM Lab Results Last 24 Hrs: 03/26/16 06:50 Test 03/25/16 07:11 03/26/16 06:50 Aspartate Amino Transf (AST/SGOT) 55 U/L (15-37) Alanine Aminotransferase (ALT/SGPT) 56 U/L (12-78) Total Creatine Kinase 1124 U/L (39-308) Triglycerides Level 75 mg/dl (0-150) Cholesterol Level 168 mg/dl (0-200) HDL Cholesterol 52 mg/dl LDL Cholesterol, Calculated 101 mg/dl VLDL Cholesterol, Calculated 15 mg/dl Cholesterol/HDL Ratio 3.2 Problem Qualifiers (1) Psychotic disorder: Psychosis type: unspecified psychosis type Qualified Codes: F29 - Unspecified psychosis not due to a substance or known physiological condition
[2016-03-28 16:04] VITALS: BP 141/84; PULSE 96; TEMP 36.7
[2016-03-28] MEDS: GABAPENTIN 600MG Q12H DOSE PO SCH (18:38)
[2016-03-28] MEDS: ACETAMINOPHEN 325 MG TAB PO PRN (18:50)
[2016-03-28 20:23] VITALS: BP 154/83; PULSE 112; TEMP 36.8
[2016-03-28] MEDS: IBUPROFEN 600 MG TAB PO PRN (20:42)
[2016-03-28] MEDS ORDERED: RISPERIDONE 2 MG TAB PO ONE (22:00)
[2016-03-29] MEDS: GABAPENTIN 600MG Q12H DOSE PO SCH (06:24)
[2016-03-29 06:45] VITALS: BP_SYST 127; BP_SYST 143; BP_DIAS 68; BP_DIAS 83; PULSE 54; PULSE 74; TEMP 36.3
[2016-03-29] MEDS: OMEGA-3 (PURIFIED FISH OIL) 1 GM CAP PO SCH (09:06)
[2016-03-29] MEDS ORDERED: RSP2 PO (10:14)
[2016-03-29] MEDS ORDERED: OMG3 PO (10:14)
--- NOTE | 2016-03-29 10:19 | Discharge Instructions ---
Discharge Information Report Includes Report will include the: Discharge Instructions & Summary Admission Admission Date / Time: Mar 24, 2016 at 13:02 Reason for Admission: Depression Discharge Discharge Diagnosis / Problem: psychosis not otherwise specified, alcohol and cannabis abuse Condition at Discharge: Fair Discharge Goals Goal(s): Improve function, Improve disease control, Learn about illness, Therapeutic intervention Activity Recommendations Activity Limitations: per Instructions/Follow-up section . Instructions / Follow-Up Instructions / Follow-Up . SPECIAL CARE INSTRUCTIONS: 1. Follow through with your scheduled aftercare appointments. If unable to keep an appointment, please call to reschedule. 2. Take your medication only as prescribed. Medication should not be changed or stopped without the approval of your doctor. In the event of worsening symptoms or concerns about side effects, contact your doctor immediately. 3. Utilize new healthy coping skills, anger management skills, and stress management skills learned during your hospitalization. Journal feelings and process them with a support person. Identify stressors or situations that may result in relapse, deterioration or inappropriate behaviors and develop a plan to deal with those issues. 4. If your coping skills are ineffective and you are in crisis, contact your outpatient providers for direction. If unable to reach your providers, please call the CAN HELP LINE AT or go to the closest Emergency Room. 5. Do not drink alcohol or take recreational or un-prescribed drugs. 6. You have been provided with the Mental Health Advance Directives Pamphlet for your review. 7. You were treated with antibiotics for gonorrhea here, and will need to follow up with your PCP in 1-2 weeks for this. AFTERCARE APPOINTMENTS: * Please call your insurance company prior to your scheduled appointment to confirm your aftercare providers are covered. Take your insurance information to your appointments. . Discharge / Aftercare Planning . Follow-Up Care Plan for Follow-Up Care: See above - aftercare being arranged at home Current Hospital Diet Patient's current hospital diet: Regular Diet Discharge Diet Recommended Diet: Regular Diet Procedures Procedures Performed: No Pending Studies Pending Studies at Discharge: No Medical Emergencies . Who to Call and When: Medical Emergencies: For questions or emergencies related to your hospital stay, please contact the Inpatient Behavioral Health Unit at [phone]. A director of pulmonary unit is on-call 02/10 for the Behavioral Health Unit for emergencies At any time you feel your situation is an emergency, you may also call 911 immediately. . Non-Emergent Contact Non-Emergency issues call your: Primary Care Provider, Psychiatrist Past History Medical & Surgical History: (1) Alcohol abuse (2) Cannabis abuse (3) Elevated creatine kinase level (4) Gonorrhea Advance Directives Existing Advance Directive: No Do You Have an Existing Mental: No Existing Living Will: No Existing Power of Email Production Consultant: No Advance Directives Info Given: To Pt/S.O. Discharge Summary Admission HPI Per the Admitting provider: Please see admission H&P. Admission Exam Per the Admitting provider: Please see admission H&P. Hospital Course (1) Psychotic disorder 03/25/15 - CRG given current prn Haldol at 5 mg was for agitation, reviewed with patient use of Risperdal 1 mg BID prn for mood stabilization and paranoia, will likely need to move to standing order - metabolic screening labs in am 03/26 - Required multiple prns of Risperdal yesterday for psychosis, feelings of agitation, and SI yesterday. Will schedule Risperdal 1mg bid. Fasting labs checked today and were WNLs. - Schedule family meeting with parents. Patient considering continuing with school vs withdrawing for the semester and returning home. 03/27 - Continue Risperdal 1 mg. BID and prns - Family meeting scheduled for tomorrow with parents. 03/28 - Continue current meds - Recommend patient consider withdrawing from school - Will need aftercare appointments - parents looking into providers in the [place] area 03/29 - Patient and parents requesting discharge. (2) Elevated creatine kinase level 03/25/16 CRG CPK improved this am (1,858), repeat in am 03/26 - CK remains high but decreased from yesterday (1,124) 03/27 - Trending down (3) Alcohol abuse As psychosis clears, will require education about the risks of ongoing alcohol use and recommendations for abstinence 03/27 - AWSS protocol using gabapentin, in view of admission of heavier alcohol abuse than perviously reported - REcommend abstinence (4) Cannabis abuse As psychosis clears, will require education about the risks of ongoing cannabis use and recommendations for abstinence Reviewed recommendations to abstain from cannabis and other recreational drugs, and risks of ongoing drug abuse, including worsening psychiatric symptoms (5) Gonorrhea 03/28 - Treated with ABX per Dr. Huddleston - Reported to the state per lab - Follow up with PCP Risk Factors Assessment Male: Yes : No /single/: No Higher / Fall in social status: No Access to guns: No Health problems: No Mental Health Diagnoses: No Substance use disorders: Yes Previous attempt: No Previous attempt;highly lethal: No Previous psychiatric stay: No Hopelessness: No Smoker: No Protective Factors Assessment : No Responsible for young children: No Employed: Yes Stable relationships: Yes Supportive family: Yes (Parents have been involved in treatment, and patient is withdrawing from school and returning home to live with them. ) Absence of risk factors above: Yes (No history of suicide attempts, denying SI here, able to review safety plan, reporting good mood, and doing own ADLs. Will be moving home with parents and getting outpatient services in home area. Psychosis and mood symptoms have improved, and patient and parents are requesting discharge. No longer at acute risk of harm to himself or others, so can be managed as an outpatient at this time.) Day of Discharge Assessment Hospital course: The patient was initially started on risperidone as needed for psychosis, and was getting multiple doses daily due to paranoia and nonspecific fearfulness. Was afraid to attend groups, and had to use the unlocked quiet room at one point. He also had episodes of suicidal ideation, for which he also received as needed medication. Due to continued psychotic symptoms, he was started on risperidone 1 mg twice a day, as it was thought likely that his symptoms were not fully attributable to his substance use, as the effects of the cannabis should have resolved more quickly were at a peer substance induced psychosis. There was some suspicion for bipolar disorder, given recent mood lability, but could not rule out a primary thought disorder. Psychotic symptoms continued to improve throughout his stay, and he was able to attend groups and participate appropriately. He was educated about the risks of alcohol and cannabis use, and the recommendations for abstinence from recreational drugs and alcohol. His creatinine kinase was followed and continued to come down. He was eating and drinking well on the unit, and performing his own ADLs. The lab notified nursing staff of a positive gonorrhea test, and the hospitalist to had treated him on the medical floor was contacted and ordered appropriate antibiotic treatment. He had a family meeting with his parents and 12-year-old sister on 03/27/2016. His parents stated that he was 90-95% back to his baseline. The different possible diagnoses were discussed, as well as the need for ongoing treatment and monitoring as an outpatient. Parents expressed concerns about the patient's substance abuse, and the recommendations to abstain were reviewed. Patient also discussed his psychosocial stressors, stating that school is difficult, his friends pressure him to smoke, and he misses his family. The patient talked about his desire to medically withdraw from school and return home for the semester, and his parents stated they would support him no matter what he decided. Parents confirmed he would not of access to guns at home. He later discuss this more with staff, and ultimately decided to medically withdrawal. His parents were active in looking for outpatient mental health providers for him in the [place] area. He also discussed with staff that one of his big stressors with had been his sexuality, as he had not previously told his family that he was homosexual, but had been able to come out to them while in the hospital which was a relief. Day of Discharge Assessment: The patient states that his mood is "good" and that his paranoia has resolved. He denies any thoughts of harming himself or anyone else, and states that he feels safe going home with his family. He is expecting his parents to pick him up today and transport him home, and states they're looking into outpatient providers for him. He denies side effects to medications, and thinks that treatment has been helpful. He reports good sleep and appetite, and is looking forward to being home with his family. Both he and his parents are requesting discharge. Well nourished, well developed male appearing stated age. Casually dressed and adequately groomed. Calm and cooperative. Seated in NAD, with fair eye contact and no abnormal movements. Speech is normal rate, volume, and tone. Mood is "pretty good," and affect is stable and congruent. Thoughts are linear , logical and goal directed. The patient denied suicidal and homicidal ideation and was able to safety plan. No paranoia, delusions, or hallucinations , and did not appear to be responding to internal stimuli. Cognition was grossly intact. Alert and oriented to person, place and time. Intelligence is consistent with level of education. Insight and and judgment are fair. Laboratory Refer to printed laboratory reports Total Time Total Time Spent (min): Greater than 30 minutes Total Time Included: examination of the patient, discharge planning, medication reconciliation Tobacco Cessation at Discharge FDA approved Prescription: non-smoker Problem Qualifiers (1) Psychotic disorder: Psychosis type: unspecified psychosis type Qualified Codes: F29 - Unspecified psychosis not due to a substance or known physiological condition
--- NOTE | 2016-03-29 15:26 | Psych Management Progress Note ---
Psychiatry Miscellaneous Date of Service: Mar 29, 2016. TR staff reported that patient appears more activated, energetic, coming up to the nurses' station frequently, and requiring redirection. He attended safety planning group but required coaching to complete his safety plan, and had some odd answers. Met with the patient again to determine if he is safe for discharge. He states he is a little anxious and excited about discharge, but remains adamant that he is ready to go home today, and denies any concerns for his safety, stating he wants to be home with his family. His parents are driving from [place] to pick him up. He remains willing to follow up with outpatient providers and to take medication. Offered to postpone discharge another day, as mood does appear elevated and there is a risk of destabilization , but he declined, feeling he is ready to go. Reviewed with charge nurse and geriatric social work professor, and will proceed with discharge as requested by patient and his parents.
[2016-03-29] MEDS ORDERED: RISPERIDONE 2 MG TAB PO SCH (22:00)
[2016-03-29] MEDS: hydrOXYzine HCL 25 MG TAB PO PRN (22:36)
[2016-03-30] MEDS ORDERED: GABAPENTIN 600MG X1 DOSE PO SCH (06:00)
== END 2016-03-29 22:45 | disposition home or self-care (01) | DRG 885 ==
LOC: C.MHU 13:02
PROVIDERS: ADMIT Psychiatry & Neurology Child & Adolescent Psychiatry; ATTEND Psychiatry & Neurology Child & Adolescent Psychiatry
DX: F29 Unspecified psychosis not due to a substance or known physiological condition (principal); R45.851 Suicidal ideations; A54.01 Gonococcal cystitis and urethritis, unspecified; F10.10 Alcohol abuse, uncomplicated; F17.210 Nicotine dependence, cigarettes, uncomplicated; F12.10 Cannabis abuse, uncomplicated; F31.9 Bipolar disorder, unspecified; R79.89 Other specified abnormal findings of blood chemistry; Z23 Encounter for immunization

== ENCOUNTER 2017-04-21 11:39 | Emergency (ER) | payer BC, OTHER ==
[~2017-04-21] VITALS: Ht 175.3 cm; Wt 98.1 kg
[~2017-04-21 11:39] MED LIST: OMG3 PO; RSP2 PO
[2017-04-21 11:45] VITALS: TEMP 37.4; Ht 175.3 cm; Wt 98.1 kg
[2017-04-21 12:56] LABS: BASO % 0.1 %; BASO ABS # 0.01 K/uL (0-0.2); HEMATOCRIT 42.6 % (42-52); HEMOGLOBIN 14.7 g/dL (14.0-18.0); IG# 0.02 K/uL (0.00-0.02); LYMPH % 19.3 %; LYMPH ABS # 1.97 K/uL (1.2-3.4); MEAN CELL VOLUME 88.6 fL (80-100); MEAN CORPUSCULAR HEMOGLOBIN 30.6 pg (25-34); MEAN CORPUSCULAR HGB CONC 34.5 g/dl (32-36); MEAN PLATELET VOLUME 9.5 fL (7.4-10.4); MONO ABS # 0.71 K/uL (0.11-0.59); NEUT % 73.4 %; NEUT ABS # 7.49 K/uL (1.4-6.5); PLATELET COUNT 219 K/uL (130-400); RED CELL DISTRIBUTION WIDTH CV 12.3 % (11.5-14.5); RED CELL DISTRIBUTION WIDTH SD 39.5 fL (36.4-46.3)
[2017-04-21 13:22] LABS: ALBUMIN 4.3 gm/dl (3.4-5.0); CALCIUM 9.1 mg/dl (8.5-10.1); CREATININE 1.11 mg/dl (0.60-1.40); POTASSIUM 3.4 mmol/L (3.5-5.1)
[2017-04-21 13:33] LABS: TOTAL PROTEIN 8.3 gm/dl (6.4-8.2)
[2017-04-21] MEDS ORDERED: LORAZEPAM 1 MG TAB SL STA (13:55)
[2017-04-21] MEDS ORDERED: HYDR50CA2 PO (16:03)
[2017-04-21 16:07] VITALS: BP 177/100; PULSE 76; O2SAT 100
--- NOTE | 2017-04-21 17:18 | EMERGENCY ROOM VISIT NOTE ---
History Report prepared by Robertoibsaúl: Carol Cartwright Under the Supervision of: Alethea GuzmanO. First contact with patient: 11:49 Chief Complaint: ANXIETY Stated Complaint: ANXIETY History of Present Illness The patient is a 21 year old male who presents to the Emergency Room with complaints of persistent anxiety for two weeks. He states that has been feeling iffy and has not been able to sleep lately. He states that he has been dealing with sleep deprivation. He denies any thoughts of self-harm or thoughts of hurting others. He states that he is trying to maintain his life schedule, but feels overwhelmed. He states that he will be able to get four to six hours of sleep that has been ongoing for two weeks. He denies any use of medications. He has a history of depression. The patient states that he has been seen for a psych evaluation one year ago for panic attacks. He denies any auditory or visual hallucinations. He is a sophomore in college. Pt denies headache, fevers , chest pain, shortness of breath, nausea, vomiting, diarrhea, or urinary symptoms. Source of History: patient Onset: two weeks Position: other (global) Quality: other (anxiety) Timing: other (persistent) Associated Symptoms: No fevers, No headache, No chest pain, No SOB, No nausea, No vomiting, No diarrhea, No urinary symptoms Note: He notes sleep deprivation. He denies any thoughts of self-harm or thoughts of hurting others. He denies any auditory or visual hallucinations. Review of Systems See HPI for pertinent positives & negatives. A total of 10 systems reviewed and were otherwise negative. Past Medical & Surgical Medical Problems: (1) Cannabis abuse (2) Elevated creatine kinase level (3) No Known Active Medical Problems (4) Psychotic disorder Family History No significant family history Social History Smoking Status: Current Some Day Smoker Alcohol Use: occasionally Drug Use: marijuana Marital Status: single Housing Status: lives alone Occupation Status: [employer] student Current/Historical Medications Scheduled Hydroxyzine Pamoate (Vistaril), 50 MG PO HS Allergies Coded Allergies: No Known Allergies (Unverified , 04/21/17) Physical Exam Vital Signs Date Time Temp Pulse Resp B/P (MAP) Pulse Ox O2 Delivery O2 Flow Rate FiO2 04/21/17 16:07 76 20 177/100 100 Room Air 04/21/17 13:45 88 20 177/91 99 Room Air 04/21/17 11:45 37.4 115 20 161/93 98 Room Air Physical Exam GENERAL: Sitting up in on the edge of the bed, alert, well appearing, well nourished, no distress, non-toxic EYE EXAM: normal conjunctiva. OROPHARYNX: no exudate, no erythema, lips, buccal mucosa, and tongue normal and mucous membranes are moist NECK: supple, no nuchal rigidity, no adenopathy, non-tender LUNGS: Clear to auscultation. Normal chest wall mechanics HEART: no murmurs, S1 normal and S2 normal ABDOMEN: abdomen soft, non-tender, normo-active bowel sounds, no masses, no rebound or guarding. SKIN: no rashes and no bruising UPPER EXTREMITIES: upper extremities are grossly normal. LOWER EXTREMITIES: No pitting edema. NEURO EXAM: Normal sensorium, cranial nerves II-XII grossly intact, normal speech, no gross weakness of arms, no gross weakness of legs. PSYCH: Denies any auditory or visual hallucination. Denies any suicidal or homicidal ideations. Admits to depression and difficultly sleeping. Medical Decision & Procedures Laboratory Results 04/21/17 12:30 Red Blood Count 4.81, Mean Corpuscular Volume 88.6, Mean Corpuscular Hemoglobin 30.6, Mean Corpuscular Hemoglobin Concent 34.5, Mean Platelet Volume 9.5, Neutrophils (%) (Auto) 73.4, Lymphocytes (%) (Auto) 19.3, Monocytes (%) (Auto) 7.0, Eosinophils (%) (Auto) 0.0, Basophils (%) (Auto) 0.1, Neutrophils # (Auto) 7.49, Lymphocytes # (Auto) 1.97, Monocytes # (Auto) 0.71, Eosinophils # (Auto) 0.00, Basophils # (Auto) 0.01 04/21/17 12:30 Test 04/21/17 12:10 04/21/17 12:30 Urine Color YELLOW Urine Appearance CLEAR (CLEAR) Urine pH 7.0 (4.5-7.5) Urine Specific [place] 1.031 (1.000-1.030) Urine Protein NEG (NEG) Urine Glucose (UA) NEG (NEG) Urine Ketones TRACE (NEG) Urine Occult Blood NEG (NEG) Urine Nitrite NEG (NEG) Urine Bilirubin NEG (NEG) Urine Urobilinogen NEG (NEG) Urine Leukocyte Esterase NEG (NEG) Urine Opiates Screen NEG (NEG) Urine Methadone, Qualitative NEG (NEG) Urine Barbiturates NEG (NEG) Urine Phencyclidine (PCP) Level NEG (NEG) Ur Amphetamine/Methamphetamine NEG (NEG) MDMA (Ecstasy) Screen NEG (NEG) Urine Benzodiazepines Screen NEG (NEG) Urine Cocaine Metabolite NEG (NEG) Urine Marijuana (THC) NEG (NEG) White Blood Count 10.20 K/uL (4.8-10.8) Red Blood Count 4.81 M/uL (4.7-6.1) Hemoglobin 14.7 g/dL (14.0-18.0) Hematocrit 42.6 % (42-52) Mean Corpuscular Volume 88.6 fL (80-100) Mean Corpuscular Hemoglobin 30.6 pg (25-34) Mean Corpuscular Hemoglobin Concent 34.5 g/dl (32-36) Platelet Count 219 K/uL (130-400) Mean Platelet Volume 9.5 fL (7.4-10.4) Neutrophils (%) (Auto) 73.4 % Lymphocytes (%) (Auto) 19.3 % Monocytes (%) (Auto) 7.0 % Eosinophils (%) (Auto) 0.0 % Basophils (%) (Auto) 0.1 % Neutrophils # (Auto) 7.49 K/uL (1.4-6.5) Lymphocytes # (Auto) 1.97 K/uL (1.2-3.4) Monocytes # (Auto) 0.71 K/uL (0.11-0.59) Eosinophils # (Auto) 0.00 K/uL (0-0.5) Basophils # (Auto) 0.01 K/uL (0-0.2) RDW Standard Deviation 39.5 fL (36.4-46.3) RDW Coefficient of Variation 12.3 % (11.5-14.5) Immature Granulocyte % (Auto) 0.2 % Immature Granulocyte # (Auto) 0.02 K/uL (0.00-0.02) Anion Gap 4.0 mmol/L (3-11) Est Creatinine Clear Calc Drug Dose 121.6 ml/min Estimated GFR () 109.4 Estimated GFR (Non- 94.4 BUN/Creatinine Ratio 8.9 (10-20) Calcium Level 9.1 mg/dl (8.5-10.1) Total Bilirubin 0.4 mg/dl (0.2-1) Direct Bilirubin 0.1 mg/dl (0-0.2) Aspartate Amino Transf (AST/SGOT) 54 U/L (15-37) Alanine Aminotransferase (ALT/SGPT) 141 U/L (12-78) Alkaline Phosphatase 72 U/L (45-117) Total Protein 8.3 gm/dl (6.4-8.2) Albumin 4.3 gm/dl (3.4-5.0) Thyroid Stimulating Hormone (TSH) 0.854 uIu/ml (0.300-4.500) Ethyl Alcohol mg/dL < 3.0 mg/dl (0-3) Laboratory results per my review. Medications Administered Medications (Trade) Dose Ordered Sig/Lisy Route Start Time Stop Time Status Last Admin Dose Admin Lorazepam (Ativan Tab) 1 mg NOW STAT SL 04/21/17 13:55 04/21/17 13:56 DC 04/21/17 14:06 1 MG ED Course ED COURSE: Vital signs were reviewed and showed tachycardic and hypertensive The patients medical record was reviewed The above diagnostic studies were performed and reviewed. ED treatments and interventions as stated above. 1152: The patient was evaluated in room A5. A complete history and physical examination was performed. 1355: Ordered Ativan 1 mg SL 1434: I spoke with Huyen, case management. She spoke with the patients family. 1450: I reassessed the patient at this time. He is feeling better. The patient is still being evaluated. 1524: I spoke with Huyen, case management. She reports the patient wants to go home and the family is prepared to take him home. 1602: Upon reevaluation, the patient is feeling better. Family is agreeable to take him home. I discussed my findings with the patient and he understands and agrees with the treatment plan. Based on the patients age, coexisting illnesses, exam and lab findings the decision to treat as an outpatient was made. The patient remained stable while under my care. The patient appeared well at the time of discharge. Medical Decision Differential diagnosis: Etiologies such as mood disorder, infection, hypoglycemia, electrolyte abnormalities, cardiac sources, intracerebral event, toxicologic, neurologic, as well as others were entertained. Patient is a 21-year-old male who presents to ER who has been having difficulty sleeping although he admits to sleeping 4-6 hours a night for the past 2 weeks. He notes his main issue is having trouble falling asleep. He does have a history of depression. He is here with family. He denies any auditory or visual hallucinations myself along with any suicidal or homicidal ideations. He did admit to nursing staff that he had some fleeting suicidal thoughts but notes he squashes them immediately when they occur. CBC was unremarkable. BMP along with bilirubin was unremarkable as well. LFTs showed a mild transaminitis. TSH was normal. Tox, alcohol and UA was negative. Patient on multiple evaluations with family at bedside requests to go home. They do not feel he is a danger to himself. We have no grounds through to him at this time. He did admit to nursing staff that he had fleeting thoughts of self-harm but has never had a plan and notes these thoughts never last more than several seconds. Patient was given 1 tab of Ativan while here to help him calm down. He was given Vistaril to go home. The patient family notes that they will follow-up as an outpatient and return to the ER for any worsening of symptoms. The patient had good clear insight with a great support system at that was reasonable to discharge him as an outpatient. Discussed with Pt concerning signs and symptoms to watch out for. Pt was instructed to follow up with their PCP and discussed with the patient their option to return to the ED at anytime for persistent or worsening symptoms. The appropriate anticipatory guidance and out-patient management, including indications for return to the emergency department, were explained at length to the patient and understood. Medication Reconcilliation Current Medication List: was personally reviewed by me Blood Pressure Screening Patient's blood pressure: Elevated blood pressure Blood pressure disposition: Elevated BP felt to be situational Impression Primary Impression: Mood disorder Additional Impressions: Transaminitis Hypokalemia Scribe Attestation The scribe's documentation has been prepared under my direction and personally reviewed by me in its entirety. I confirm that the note above accurately reflects all work, treatment, procedures, and medical decision making performed by me. Departure Information Dispostion Home / Self-Care Prescriptions Hydroxyzine Pamoate (VISTARIL) 50 Mg Cap 50 MG PO HS for 10 Days, CAP Prov: Miguel High, DO 04/21/17 Referrals No Doctor, Assigned (PCP) Forms HOME CARE DOCUMENTATION FORM, IMPORTANT VISIT INFORMATION Patient Instructions Affective Mood Disorder, ED Depression, [facility] Additional Instructions Please follow up with your primary care doctor with in the next 24 hours. Any worsening of your symptoms, please return to the ED immediately. This includes any fevers greater than 100.4, worsening pain, chest pain, shortness breath, persistent nausea, vomiting, unable to eat or drink, or any other concerning signs or symptoms from your standpoint. Please follow up with your therapist/psychiatrist as soon as possible. Any thoughts of wanting to harm yourself, harm anyone else or auditory/visual hallucinations please return immediately to the ER. Please have your liver functions followed up on within 1 week as they were slightly elevated. Problem Qualifiers
== END 2017-04-21 16:10 | disposition home or self-care (01) ==
LOC: C.EDB 11:40 → C.EDA 16:10
DX: F39 Unspecified mood [affective] disorder (principal); R74.0 Nonspecific elevation of levels of transaminase and lactic acid dehydrogenase [LDH]; E87.6 Hypokalemia; F41.9 Anxiety disorder, unspecified; Z79.899 Other long term (current) drug therapy; F17.200 Nicotine dependence, unspecified, uncomplicated